=== PATIENT | male | born 1935 | race Two or more races ===

== ENCOUNTER 2018-07-13 09:03 | Inpatient (IN) | payer MEDICARE, OTHER ==
[~2018-07-13] VITALS: Ht 177.8 cm; Wt 57.6 kg
--- NOTE | 2018-07-13 09:07 | NUR ---
PT BIBRA FROM HOME TO ER BED 10. PER REPORT, PT IS C/O GENERALIZED WEAKNESS, PAIN WORST UPON MOVEMENT. DIARRHEA X 2 DAYS. HX OF CVA W/ L SIDED DEFICIT. GOWNED AND PLACED ON MONITOR. STABLE VITALS. AWAITING MD MORTENSEN.
--- NOTE | 2018-07-13 09:30 | NUR ---
DR WELLER AT BEDSIDE FOR EVAL.
[2018-07-13] MEDS ORDERED: ONDANSETRON HCL/PF 4 MG/2 ML VIAL ONE (09:40)
[2018-07-13] MEDS ORDERED: IV NS 0.9% 500 ML BAG IV ONE (10:00)
[2018-07-13] MEDS ORDERED: ONDANSETRON HCL/PF 4 MG/2 ML VIAL IVP ONE (10:00)
[2018-07-13 10:07] LABS: BASOPHILS % (AUTO) 0.1 % (0.0-2.0); EOSINOPHILS % (AUTO) 0.3 % (0.0-6.0); HEMATOCRIT 33 % (39-51); HEMOGLOBIN 10.4 g/dL (13.5-17.5); LYMPHOCYTES # (AUTO) 0.7 /CMM (0.8-4.8); LYMPHOCYTES % (AUTO) 5.2 % (20.0-44.0); MEAN CORPUSCULAR HEMOGLOBIN 31 PG (26.0-33.0); MEAN CORPUSCULAR HGB CONC 32 g/dl (31.0-36.0); MEAN CORPUSCULAR VOLUME 99 fL (80-96); MONOCYTES # (AUTO) 0.9 /CMM (0.1-1.30); MONOCYTES % (AUTO) 6.6 % (2.0-12.0); NEUTROPHILS # (AUTO) 12.1 /CMM (1.8-8.9); NEUTROPHILS % (AUTO) 87.8 % (43.0-81.0); PLATELET COUNT (AUTO) 233 /CMM (150-450); RDW COEFFICIENT OF VARIATION 14.8 (11.5-15.0); RED BLOOD CELL COUNT(AUTO) 3.35 MIL/uL (4.5-6.0); WHITE BLOOD COUNT (AUTO) 13.8 K/uL (4.3-11.0)
[2018-07-13 10:15] LABS: CALCIUM, SERUM 8.5 mg/dL (8.5-10.1); CARBON DIOXIDE 27 mmol/L (21-32); CHLORIDE 108 mmol/L (98-107); CREATININE 1.7 mg/dL (0.6-1.3); GLUCOSE 90 mg/dL (74-106); POTASSIUM 3.2 mmol/L (3.5-5.1); SODIUM SERUM 141 mmol/L (136-145); UREA NITROGEN, BLOOD 29 mg/dL (7-18)
--- NOTE | 2018-07-13 10:21 | NUR ---
WARM BLANKET REQUESTED, RESTING COMFORTABLY IN BED
[2018-07-13 11:20] LABS: APPEARANCE,URINE Cloudy (CLEAR); BILIRUBIN,URINE Negative (NEGATIVE); BLOOD, URINE Moderate Ery/uL (NEGATIVE); COLOR,URINE Yellow (YELLOW); KETONES,URINE Trace (NEGATIVE); LEUKOCYTE ESTERASE ,URINE Moderate (NEGATIVE); NITRITE, URINE Negative (NEGATIVE); PROTEIN,URINE >=300 mg/dl (NEGATIVE); UGLUCOSE Negative (NEGATIVE); UROBILINOGEN,URINE 0.2 EU/dL (0.2)
[2018-07-13 11:23] LABS: BACTERIA,URINE Many /HPF (None Seen); SQUAMOUS EPITHELIAL CELL,UR Few /HPF (None Seen); WBC,URINE 21-50 /HPF (0-3)
--- NOTE | 2018-07-13 12:21 | NUR ---
CALLED [facility] FOR PANEL CALL AND CAROLYN GOODE WAS PAGED
--- NOTE | 2018-07-13 12:24 | NUR ---
CALLED NURSING ELECTRONICS SYSTEM MECHANIC AND REQUESTED A MED SURG BED FOR THIS PT.
[2018-07-13] MEDS ORDERED: PIPERACILLIN /TAZOBACTAM 3.375 G in IV D5W 50 ML IV ONE (12:30)
[2018-07-13] MEDS ORDERED: ONDA4TAB10 PO (12:38)
[2018-07-13] MEDS ORDERED: ASPI-1169 PO (12:38)
[2018-07-13] MEDS ORDERED: PANT40TA4 PO (12:38)
[2018-07-13] MEDS ORDERED: ACET325T53 PO (12:38)
[2018-07-13] MEDS ORDERED: ATOR10TA PO (12:38)
[2018-07-13] MEDS ORDERED: AMLO2.5T2 PO (12:38)
[2018-07-13] MEDS ORDERED: CALC0.5C11 PO (12:38)
[2018-07-13] MEDS ORDERED: ABIR250T PO (12:38)
[2018-07-13] MEDS ORDERED: PRED1TAB PO (12:38)
[2018-07-13] MEDS ORDERED: AMIO200T4 PO (12:38)
--- NOTE | 2018-07-13 12:55 | NUR ---
Chelsy olivares in [facility] - 07/13/18 at 1311 by MONA PT IS ASSIGNED TO [facility]#: [id number], DX: WEAKNESS AND UTI, AND ACCEPTING: CAROLYN GOODE
--- NOTE | 2018-07-13 13:11 | NUR ---
PT IS ASSIGNED TO MED SURG RM#: [id number], DX: WEAKNESS AND UTI, AND ACCEPTING: CAROLYN GOODE
--- NOTE | 2018-07-13 13:17 | NUR ---
REPORT GIVEN TO JOSÉ MIGUEL. PT AWAITING TRANSFER TO FLOOR.
--- NOTE | 2018-07-13 13:29 | NUR ---
REPORT GIVEN TO ASHU KIRK. PT AWAITING TRANSFER TO FLOOR.
[2018-07-13 13:40] VITALS: BP 134/71
[2018-07-13 13:50] VITALS: BP 139/71
--- NOTE | 2018-07-13 13:55 | NUR ---
MS CIVIL DESIGN SPECIALIST 82 YEARS OLD MALE, A/O X3. SKIN BODY ASSESSMENT DONE WITH BRANCH ACCOUNT MANAGER. BILATERAL NEPHROSTOMY INTACT WITH DRAINAGE CLEAR YELLOW URINE. LUE, LLE WEAKNESS FROM HX. CVA. NO STOOL UPON ADMISSION, DENIES ABDOMINAL PAIN. ORIENTED TO ROOM, UNIT, STAFF AND PLACE CALL LIGHT WITHIN REACH. WILL CONT TO MONITOR.
[2018-07-13] MEDS ORDERED: MAG HYDROX/AL HYDROX/SIMETH 30 ML UDC PO PRN (14:00)
[2018-07-13] MEDS ORDERED: ACETAMINOPHEN 325 MG TABLET PO PRN (14:00)
[2018-07-13] MEDS ORDERED: ONDANSETRON HCL/PF 4 MG/2 ML VIAL IVP PRN (14:00)
[2018-07-13] MEDS ORDERED: MORPHINE SULFATE INJ 4 MG/ML DISP.SYRIN IV PRN (14:00)
[2018-07-13] MEDS: IV NS 0.9% 1,000 ML IV PRN (14:15)
[2018-07-13] MEDS ORDERED: POTASSIUM CL. PREMIX PERIPHER. 50 ML IV SCH (15:00)
[2018-07-13 16:21] VITALS: BP 132/67
[2018-07-13] MEDS ORDERED: Z GUARD REMEDY 2 OZ OINT TP PRN (17:30)
[2018-07-13] MEDS: PIPERACILLIN /TAZOBACTAM 2.25 G in IV D5W 50 ML IV SCH ×2 (18:02→23:26)
--- NOTE | 2018-07-13 18:34 | NUR ---
MS RN CLOSING NOTES VS remains stable, patient is seen by Dr. Chan/GI for consult, place patient on Clear liquids as ordered. Continued on IV antibiotic, for ID consult. Afebrile, denies abdominal pain. Low Potassium 3.2, supplemented as ordered. Had bowel movement today, soft pasty brown moderate amount, stool not collected, no episode of diarrhea. Will endorse to oncoming RN.
--- NOTE | 2018-07-13 19:30 | NUR ---
RN NOTES RECEIVED PATIENT IN BED AWAKE, AO X 3, ABLE TO MAKE NEEDS KNOWN. NO ACUTE DISTRESS NOTED. DENIES ANY PAIN AT THIS TIME. IV SITE PATENT, INTACT; IVF INFUSING ORDERED. SAFETY REMINDERS GIVEN. ON LOW BED WITH BILATERAL UPPER SIDE RAILS UP. CALL FITZGERALD WITHIN EASY REACH. WILL CONTINUE TO MONITOR.
[2018-07-13 20:00] VITALS: BP 139/73
[2018-07-13] MEDS ORDERED: VANCOMYCIN 1 GM VIAL ONE (21:28)
[2018-07-13] MEDS ORDERED: VANCOMYCIN 1 GM in IV D5W 250ml IV ONE (22:00)
[2018-07-14] MEDS: PIPERACILLIN /TAZOBACTAM 2.25 G in IV D5W 50 ML IV SCH ×4 (05:38→23:45)
--- NOTE | 2018-07-14 06:10 | NUR ---
RN NOTES PATIENT ASLEEP, EASILY AROUSABLE. RESPIRATIONS EVEN. NO SIGNS OF PAIN NOTED. DUE MEDS GIVEN WITH NO ASE NOTED. NEEDS ATTENDED. BILATERAL NEPHROSTOMY TUBES INTACT; DRAINED CLEAR FLUIDS. SAFETY PRECAUTIONS AND COMFORT MEASURES IN PLACE. WILL GIVE REPORT TO DAY SHIFT FOR CONTINUITY OF CARE.
[2018-07-14 06:27] LABS: BASOPHILS % (AUTO) 0.3 % (0.0-2.0); EOSINOPHILS % (AUTO) 3.6 % (0.0-6.0); HEMATOCRIT 29 % (39-51); HEMOGLOBIN 9.5 g/dL (13.5-17.5); LYMPHOCYTES # (AUTO) 0.9 /CMM (0.8-4.8); LYMPHOCYTES % (AUTO) 8.9 % (20.0-44.0); MEAN CORPUSCULAR HEMOGLOBIN 32 PG (26.0-33.0); MEAN CORPUSCULAR HGB CONC 33 g/dl (31.0-36.0); MEAN CORPUSCULAR VOLUME 99 fL (80-96); MONOCYTES % (AUTO) 9.7 % (2.0-12.0); NEUTROPHILS # (AUTO) 7.9 /CMM (1.8-8.9); NEUTROPHILS % (AUTO) 77.5 % (43.0-81.0); PLATELET COUNT (AUTO) 197 /CMM (150-450); RDW COEFFICIENT OF VARIATION 14.3 (11.5-15.0); RED BLOOD CELL COUNT(AUTO) 2.93 MIL/uL (4.5-6.0); WHITE BLOOD COUNT (AUTO) 10.3 K/uL (4.3-11.0)
[2018-07-14] MEDS: IV NS 0.9% 1,000 ML IV PRN (06:27)
[2018-07-14 06:39] LABS: CHOLESTEROL 137 mg/dL (<200); HDL CHOLESTEROL 33 mg/dL (40-60); LDL 76 mg/dL (0-99); TRIGLYCERIDES 123 mg/dL (30-150)
[2018-07-14] MEDS ORDERED: FEE PK DOSING 1 MIN EA MC ONE (06:42)
[2018-07-14 07:00] LABS: FREE PSA 3.54 ng/mL (0.00-45); PROSTATE SPECIFIC ANTIGEN SCR 20.33 ng/mL (0.00-4.00); THYROID STIMULATING HORMONE 2.862 uIU/mL (0.358-3.74)
[2018-07-14 07:03] LABS: CALCIUM, SERUM 8.1 mg/dL (8.5-10.1); CARBON DIOXIDE 24 mmol/L (21-32); CHLORIDE 108 mmol/L (98-107); CREATININE 1.7 mg/dL (0.6-1.3); GLUCOSE 85 mg/dL (74-106); MAGNESIUM 1.7 mg/dL (1.8-2.4); PHOSPHORUS 3.4 mg/dL (2.5-4.9); POTASSIUM 2.9 mmol/L (3.5-5.1); SODIUM SERUM 142 mmol/L (136-145); UREA NITROGEN, BLOOD 28 mg/dL (7-18)
[2018-07-14 07:27] LABS: ALBUMIN 2.2 g/dL (3.4-5.0); BILIRUBIN,DIRECT 0.1 mg/dL (0.0-0.2); BILIRUBIN,TOTAL 0.3 mg/dL (0.2-1.0); TOTAL PROTEIN, SERUM 5.5 g/dL (6.4-8.2)
[2018-07-14] MEDS: PANTOPRAZOLE 40 MG VIAL IV SCH (08:15)
--- NOTE | 2018-07-14 08:20 | NUR ---
MS RN NOTES Patient is A/O x3, on clear liquids, tolerating well. No complaints of N/V, denies abdominal pain. Nephrostomy intact, urine pale yellow and cloudy. Maintained safety, call light within reach. Will cont to monitor.
[2018-07-14 08:25] VITALS: BP 162/76
[2018-07-14 09:54] VITALS: BP 154/66
[2018-07-14] MEDS ORDERED: Magnesium 1GM/D5W 100ML PREMIX 100 ML IV SCH (11:29)
[2018-07-14] MEDS ORDERED: POTASSIUM CHLORIDE 20 MEQ POWDER PACKET PO ONE (12:00)
[2018-07-14] MEDS: POTASSIUM CHLORIDE 20 MEQ POWDER PACKET PO SCH ×2 (12:14→14:54)
[2018-07-14] MEDS: NITROGLYCERIN PACKET 1 GM PACKET TOP SCH ×3 (12:26→23:47)
[2018-07-14 16:00] VITALS: BP 145/82
--- NOTE | 2018-07-14 17:42 | NUR ---
Spoke with Eliana admin @ [facility]. Patient resides at [facility] @ [address] [facility] [phone]. Per Eliana, patient requires 2people assist with transfers and ambulation. He is max assist with adl's. He is currently on service with [facility] [phone]. Eliana will make determination if able to accept patient back due to isolation status stool C-diff. Addendum: 07/14/18 at 1742 by SUZETTE BALDWIN RN Amended: Links added.
[2018-07-14] MEDS: VANCOMYCIN HCL 125 MG/2.5 ML ORAL.SUSP PO SCH ×2 (18:31→23:45)
--- NOTE | 2018-07-14 18:45 | NUR ---
MS RN CLOSING NOTES Started on vancomycin PO today for C-diff stool. Afebrile during the shift, denies abdominal pain. NO episode of N/V, advanced diet to Cardiac, soft per Dr. Chan/GI. Continued IV Antibiotic per ID, maintained contact isolation C-diff stool, PPE utilized. Called [facility], unable to bring patients prostate medication-Zytiga. Called patient's sister Verónica, left message to her voicemail. Will endorse to oncoming RN.
--- NOTE | 2018-07-14 19:15 | NUR ---
MS RN NOTES RECEIVED PT IN BED, AWAKE, A/O X 3. VERBALLY RESPONSIVE. NO DISTRESS, NO SOB NOTED. IV SITE ON LFA INTACT AND PATENT, NO S/S OF INFILTRATION NOTED. IVF INFUSING WELL. LEFT AND RIGHT NEPHROSTOMY TUBE IN PLACE. DRAINING WITH YELLOW URINE NO HEMATURIA NOTED. ON C/I FOR C.DIFF. CONTACT ISOLATION PRECAUTION/ PPE OBSERVED. GOOD SKIN CARE RENDERED. ALL NEEDS ATTENDED AND ET. KEPT COMFORTABLE. SAFETY PRECAUTIONS OBSERVED. CALL LIGHT WITHIN REACH. WILL CONT TO MONITOR. .
[2018-07-14 20:00] VITALS: BP 132/65
[2018-07-14 20:09] LABS: APPEARANCE,URINE SL CLOUDY (CLEAR); BILIRUBIN,URINE NEGATIVE (NEGATIVE); BLOOD, URINE 2+ Ery/uL (NEGATIVE); COLOR,URINE YELLOW (YELLOW); KETONES,URINE NEGATIVE (NEGATIVE); LEUKOCYTE ESTERASE ,URINE 2+ (NEGATIVE); NITRITE, URINE POSITIVE (NEGATIVE); PROTEIN,URINE 2+ mg/dl (NEGATIVE); UGLUCOSE NEGATIVE (NEGATIVE); UROBILINOGEN,URINE 0.2 EU/dL (0.2)
[2018-07-14 20:15] LABS: BACTERIA,URINE Many /HPF (None Seen); SQUAMOUS EPITHELIAL CELL,UR Rare /HPF (None Seen); URINE AMORPHOUS URATE Moderate /HPF (None Seen); WBC,URINE 81-100 /HPF (0-3)
--- NOTE | 2018-07-14 20:21 | NUR ---
FRANCISCA, FROM [facility] BROUGHT PT'S ZYTIGA MEDICATION.
--- NOTE | 2018-07-14 20:25 | NUR ---
VENECIA MEDICATION GIVEN TO PHARMACY, RECEIVED BY SILKE
[2018-07-14 20:34] LABS: EOSINOPHIL,URINE None Seen
--- NOTE | 2018-07-14 20:45 | NUR ---
PT ON VANCO IV AND PO, NOTIFIED JOAN, PHARMACIST , PER KYAW IT'S OK.
[2018-07-14] MEDS ORDERED: VANCOMYCIN 0.75 GM in IV D5W 250 ML IV SCH (21:00)
[2018-07-14] MEDS ORDERED: ACETAMINOPHEN 325 MG TABLET PO PRN (21:00)
[2018-07-14 21:26] LABS: CREATININE, URINE 66.5 MG/DL (30.0-125.0); URINE TOTAL PROTEIN 181.9 mg/dL (0-11.9)
[2018-07-15] MEDS: IV NS 0.9% 1,000 ML IV PRN (02:35)
[2018-07-15] MEDS: VANCOMYCIN HCL 125 MG/2.5 ML ORAL.SUSP PO SCH ×4 (06:09→23:43)
[2018-07-15] MEDS: PIPERACILLIN /TAZOBACTAM 2.25 G in IV D5W 50 ML IV SCH ×3 (06:09→17:06)
[2018-07-15] MEDS: NITROGLYCERIN PACKET 1 GM PACKET TOP SCH ×4 (06:10→23:45)
--- NOTE | 2018-07-15 06:40 | NUR ---
MS RN NOTES PT IN BED, RESTING COMFORTABLY AT THIS TIME, AROUSES EASILY, A/O X 3. VERBALLY RESPONSIVE. NO DISTRESS, NO SOB NOTED. IV SITE ON LFA INTACT AND PATENT, NO S/S OF INFILTRATION NOTED. IVF INFUSING WELL. LEFT AND RIGHT NEPHROSTOMY TUBE IN PLACE. DRAINING WITH YELLOW URINE NO HEMATURIA NOTED. GOOD SKIN CARE RENDERED. ALL NEEDS ATTENDED AND MET. KEPT COMFORTABLE. SAFETY PRECAUTIONS OBSERVED. CALL LIGHT WITHIN REACH. ALL NEEDS ATTENDED AND MET. WILL ENDORSE TO NEXT SHIFT FOR DRU.
[2018-07-15 06:42] LABS: BASOPHILS % (AUTO) 0.4 % (0.0-2.0); EOSINOPHILS % (AUTO) 8.1 % (0.0-6.0); HEMATOCRIT 29 % (39-51); HEMOGLOBIN 9.5 g/dL (13.5-17.5); LYMPHOCYTES % (AUTO) 12.2 % (20.0-44.0); MEAN CORPUSCULAR HEMOGLOBIN 32 PG (26.0-33.0); MEAN CORPUSCULAR HGB CONC 33 g/dl (31.0-36.0); MEAN CORPUSCULAR VOLUME 99 fL (80-96); MONOCYTES # (AUTO) 0.7 /CMM (0.1-1.30); MONOCYTES % (AUTO) 8.9 % (2.0-12.0); NEUTROPHILS # (AUTO) 5.8 /CMM (1.8-8.9); NEUTROPHILS % (AUTO) 70.4 % (43.0-81.0); PLATELET COUNT (AUTO) 212 /CMM (150-450); RDW COEFFICIENT OF VARIATION 14.3 (11.5-15.0); RED BLOOD CELL COUNT(AUTO) 2.96 MIL/uL (4.5-6.0); WHITE BLOOD COUNT (AUTO) 8.2 K/uL (4.3-11.0)
[2018-07-15 06:57] LABS: CREATINE KINASE, TOTAL 13 U/L (39-308)
[2018-07-15 07:19] LABS: ALANINE AMINOTRANSFERASE 11 U/L (12-78); ALBUMIN 2.1 g/dL (3.4-5.0); ALKALINE PHOSPHATASE 75 U/L (46-116); ASPARTATE AMINOTRANSFERASE 19 U/L (15-37); BILIRUBIN,TOTAL 0.3 mg/dL (0.2-1.0); CALCIUM, SERUM 8.1 mg/dL (8.5-10.1); CARBON DIOXIDE 24 mmol/L (21-32); CHLORIDE 108 mmol/L (98-107); CREATININE 1.6 mg/dL (0.6-1.3); GLUCOSE 82 mg/dL (74-106); PHOSPHORUS 2.7 mg/dL (2.5-4.9); POTASSIUM 3.2 mmol/L (3.5-5.1); SODIUM SERUM 142 mmol/L (136-145); TOTAL PROTEIN, SERUM 5.4 g/dL (6.4-8.2); UREA NITROGEN, BLOOD 23 mg/dL (7-18)
--- NOTE | 2018-07-15 07:30 | NUR ---
MS RN NOTES PATIENT RECEIVED RESTING INSIDE ROOM. AWAKE, ALERT AND ORIENTED X 3. VERBALLY RESPONSIVE AND RESPONDS TO VERBAL AND TACTILE STIMULI. BREATHING EVEN AND UNLABORED. NO SOB OR ACUTE DISTRESS. DENIES ANY PAIN OR DISCOMFORT AT THIS TIME. PATIENT CALM AND RELAXED. NO CHANGES IN LOC NOTED. IV INTACT AND PATENT. NO SWELLING OR BLEEDING NOTED ON SITE. WILL CONTINUE TO MONITOR. BED LOCKED AND IN LOW POSITION. BILATERAL UPPER SIDE RAILS UP AND LOCKED. CALL LIGHT WITHIN EASY REACH
[2018-07-15] MEDS: PANTOPRAZOLE 40 MG TABLET.DR PO SCH (07:52)
[2018-07-15 08:00] VITALS: BP 167/82
[2018-07-15] MEDS: PANTOPRAZOLE 40 MG VIAL IV SCH (08:19)
--- NOTE | 2018-07-15 08:19 | NUR ---
MS RN NOTES PATIENT HAS CURRENT ORDER FOR PANTOPRAZOLE 40MG IVP. PATIENT ALREADY RECEIVED 40MG TAB PO PRIOR TO BREAKFAST. PANTOPRAZOLE 40MG IVP HELD. MD MADE AWARE. WILL CONTINUE TO MONITOR
[2018-07-15] MEDS: ASPIRIN 81 MG TAB.CHEW PO SCH (08:50)
[2018-07-15] MEDS: predniSONE 1 MG TABLET PO SCH (08:50)
[2018-07-15] MEDS: CALCITRIOL 0.25 MCG CAPSULE PO SCH (08:50)
[2018-07-15] MEDS: ATORVASTATIN 10 MG TABLET PO SCH (08:50)
[2018-07-15] MEDS: AMLODIPINE BESYLATE 2.5 MG TABLET PO SCH (08:50)
[2018-07-15] MEDS: AMIODARONE HCL 200 MG TABLET PO SCH ×2 (08:51→17:00)
--- NOTE | 2018-07-15 09:51 | NUR ---
WOUND CARE CONSULT: PT PRESENTS WITH BILATERAL NEPHROSTOMY TUBES AND SKIN STAINING/PIGMENTATION IRREGULARITIES TO SACRAL/BUTTOCKS AREA, PRESENT ON ADMISSION. PT HAVING FREQUENT LOOSE STOOLS. RECOMMENDATIONS MADE FOR SKIN PROTECTION. DISCUSSED WITH NURSING STAFF. CURRENT FABRICE SCORE IS 16. WILL SEE PRN. MIXON IN AGREEMENT WITH PLAN OF CARE. Addendum: 07/15/18 at 0953 by EZIO HOFFMANN WNDNU Amended: Links added.
[2018-07-15] MEDS ORDERED: POTASSIUM CHLORIDE 20 MEQ POWDER PACKET PO SCH (11:30)
--- NOTE | 2018-07-15 15:00 | NUR ---
MS RN NOTES PLACED CALL TO [facility] TO INFORM REGARDING ENSURE ORDER FOR 1700. PER [facility], ENSURE WILL BE DELIVERED AT DINNER TIME. WILL CONTINUE TO MONITOR
[2018-07-15 16:00] VITALS: BP 148/83
[2018-07-15] MEDS: ENSURE CLEAR 237 ML LIQUID (MIX BERRY) PO SCH (17:00)
--- NOTE | 2018-07-15 17:30 | NUR ---
MS RN NOTES PLACED CALL TO [facility] TO FOLLOW-UP REGARDING ENSURE CLEAR, NOT CURRENTLY AVAILABLE AT UNIT. PER [facility], THEY WILL DELIVER ENSURE TO UNIT. WILL CONTINUE TO MONITOR
[2018-07-15] MEDS: CEFTRIAXONE 1 G in IV D5W 50 ML IV SCH (18:22)
--- NOTE | 2018-07-15 18:55 | NUR ---
MS RN NOTES PATIENT RESTING INSIDE ROOM. AWAKE, ALERT AND ORIENTED, VERBALLY RESPONSIVE AND RESPONDS TO VERBAL AND TACTILE STIMULI. BREATHING EVEN AND UNLABORED. NO SOB OR ACUTE DISTRESS NOTED AT THIS TIME. DENIES ANY PAIN OR DISCOMFORT. IV INTACT AND PATENT, NO SWELLING OR BLEEDING ON SITE. BILATERAL NEPHROSTOMY IN PLACE WITH YELLOW URINE OUTPUT NOTED. WILL ENDORSE TO INCOMING SHIFT FOR DRU. BED LOCKED AND IN LOW POSITION. BILATERAL UPPER SIDE RAILS UP AND LOCKED. CALL LIGHT WITHIN EASY REACH
--- NOTE | 2018-07-15 19:18 | NUR ---
MS RN NOTES RECEIVED PT IN BED, AWAKE, A/O X 3, WATCHING TV AT THIS TIME, VERBALLY RESPONSIVE. NO DISTRESS, NO SOB NOTED. IV SITE ON LFA INTACT AND PATENT, NO S/S OF INFILTRATION NOTED. IVF INFUSING WELL. LEFT AND RIGHT NEPHROSTOMY TUBE IN PLACE. DRAINING WITH YELLOW URINE NO HEMATURIA NOTED. ON C/I FOR C.DIFF. CONTACT ISOLATION PRECAUTION/ PPE OBSERVED. GOOD SKIN CARE RENDERED. ALL NEEDS ATTENDED AND MET. DENIES ANY PAIN OR DISCOMFORT AT THIS TIME. KEPT COMFORTABLE. SAFETY PRECAUTIONS OBSERVED. CALL LIGHT WITHIN REACH. WILL CONT TO MONITOR.
[2018-07-15 20:00] VITALS: BP 142/70
--- NOTE | 2018-07-16 05:23 | NUR ---
PT REFUSED BLOOD DRAW PER LIFE SKILLS SPECIALIST , PT IS A/O X 3, RISK AND BENEFITS EXPLAINED , PT STILL REFUSED X 3.
[2018-07-16] MEDS: VANCOMYCIN HCL 125 MG/2.5 ML ORAL.SUSP PO SCH ×4 (05:46→23:25)
[2018-07-16] MEDS: NITROGLYCERIN PACKET 1 GM PACKET TOP SCH ×4 (05:51→23:30)
--- NOTE | 2018-07-16 06:25 | NUR ---
MS RN CLOSING NOTES PT IN BED, RESTING COMFORTABLY AT THIS TIME, AROUSES EASILY, A/O X 3, VERBALLY RESPONSIVE. NO DISTRESS, NO SOB NOTED. IV SITE ON LFA INTACT AND PATENT, NO S/S OF INFILTRATION NOTED. IVF INFUSING WELL. LEFT AND RIGHT NEPHROSTOMY TUBE IN PLACE. DRAINING WITH YELLOW URINE NO HEMATURIA NOTED. ON C/I FOR C.DIFF. CONTACT ISOLATION PRECAUTION/ PPE OBSERVED. GOOD SKIN CARE RENDERED. ALL NEEDS ATTENDED AND MET. DENIES ANY PAIN OR DISCOMFORT AT THIS TIME. NO BM NOR DIARRHEA NOTED IN MY SHIFT. KEPT COMFORTABLE. SAFETY PRECAUTIONS OBSERVED. CALL LIGHT WITHIN REACH. WILL ENDORSE TO NEXT SHIFT FOR DRU.
[2018-07-16] MEDS: IV NS 0.9% 1,000 ML IV PRN ×2 (07:02→09:54)
--- NOTE | 2018-07-16 07:30 | NUR ---
MS RN OPENING NOTES RECEIVED PT SITTING UPRIGHT IN BED, RESTING COMFORTABLY. PT IS A/O X3, AFEBRILE. RESPIRATIONS ARE EVEN AND UNLABORED, NOT IN ANY ACUTE DISTRESS NOTED. PT DENIES ANY PAIN, SOB, N/V. IV SITE IS INTACT, NO INFILTRATION NOTED. DRESSING KEPT CLEAN AND DRY. CONTACT PRECAUTIONS TAKEN PER PROTOCOL. SAFETY MEASURES ARE IN PLACE. INSTRUCTED PT TO USE CALL LIGHT WHEN ASSISTANCE IS NEEDED, CALL LIGHT IS LEFT WITHIN REACH. WILL CONTINUE TO MONITOR THROUGHOUT SHIFT FOR CONTINUITY OF CARE.
[2018-07-16] MEDS: PANTOPRAZOLE 40 MG TABLET.DR PO SCH (07:53)
[2018-07-16 08:00] VITALS: BP 179/97
[2018-07-16] MEDS: ASPIRIN 81 MG TAB.CHEW PO SCH (08:33)
[2018-07-16] MEDS: ATORVASTATIN 10 MG TABLET PO SCH (08:33)
[2018-07-16] MEDS: ENSURE CLEAR 237 ML LIQUID (MIX BERRY) PO SCH ×2 (08:33→17:07)
[2018-07-16] MEDS: CALCITRIOL 0.25 MCG CAPSULE PO SCH (08:33)
[2018-07-16] MEDS: AMLODIPINE BESYLATE 2.5 MG TABLET PO SCH (08:34)
[2018-07-16] MEDS: predniSONE 1 MG TABLET PO SCH (08:34)
[2018-07-16] MEDS: AMIODARONE HCL 200 MG TABLET PO SCH ×2 (08:34→17:08)
--- NOTE | 2018-07-16 10:48 | NUR ---
MS RN NOTES PT REFUSED BLOOD DRAW. EXPLAINED TO THE PT THE IMPORTANCE AND THE NEED FOR BLOOD DRAW X3, PT STRONGLY REFUSES. INFORMED PT THAT POTASSIUM IS LOW, PT STILL STATED "NO, I DONT WANT THEM DRAWING MY BLOOD. NOTIFIED DR. HIGGINS.
--- NOTE | 2018-07-16 11:22 | NUR ---
MS RN NOTES PT SEEN AND EXAMINED BY DR. HIGGINS W/ ORDERS FOR PT EVAL.
[2018-07-16 13:29] LABS: PTH, INTACT 28 pg/mL (15-65)
[2018-07-16] MEDS: METRONIDAZOLE 500MG/ NS 100ML 500 MG in PREMIX 1 EA IV SCH ×2 (14:49→21:42)
[2018-07-16 16:00] VITALS: BP 150/69
[2018-07-16] MEDS: CEFTRIAXONE 1 G in IV D5W 50 ML IV SCH (17:08)
--- NOTE | 2018-07-16 18:28 | NUR ---
MS RN CLOSING NOTES ALL DUE MEDS GIVEN, NEEDS MET AND RENDERED. PT IS ALERT AND RESPONSIVE, RESPIRATIONS ARE EVEN AND UNLABORED, NOT IN ANY ACUTE DISTRESS NOTED. PT DENIES ANY PAIN, NO SOB, N/V NOTED. IV SITE IS INTACT, NO INFILTRATION NOTED. DRESSING KEPT CLEAN AND DRY. SAFETY MEASURES ARE IN PLACE. REMINDED PT TO USE CALL LIGHT WHEN ASSISTANCE IS NEEDED, CALL LIGHT IS LEFT WITHIN REACH. CONTACT PRECAUTIONS TAKEN PER PROTOCOL. WILL ENDORSE TO NEXT SHIFT FOR CONTINUITY OF CARE.
--- NOTE | 2018-07-16 19:25 | NUR ---
RN MS OPENING NOTES RECEIVED PATIENT IN BED AWAKE ALERT AND ORIENTED X3, ABLE TO MAKE NEEDS KNOWN, RESPIRATIONS EVEN AND UNLABORED WITH EQUAL RISE AND FALL OF CHEST, DENIES ANY PAIN OR DISCOMFORT AT THIS TIME, NEPHROSTOMY TUBES IN PLACE AND INTACT AND DRAINING. IV SITE TO LEFT FA #20G INTACT AND PATENT NO REDNESS, NO INFILTRATION PRESENT, IVF RUNNING ORDERED. ORIENTED TO STAFF, ROOM AND CALL LIGHT KEPT WITHIN REACH, SAFETY PRECAUTIONS IN PLACE, LOW BED AND LOCKED, FLUIDS OFFERED, ALL NEEDS ATTENDED AT THIS TIME, WILL CONTINUE TO MONITOR FOR CONTINUITY OF CARE.
[2018-07-16 20:00] VITALS: BP 190/86
--- NOTE | 2018-07-16 20:21 | NUR ---
RN MS NOTES CALLED AND SPOKE TO DR. JIMENEZ REGARDING ELEVATED BLOOD PRESSURE OF 190/86 HR OF 53, MADE AWARE OF CURRENT B/P MEDS AND SCHEDULE NITRO BID TOPICAL FOR MIDNIGHT AND PATIENT ASYMPTOMATIC, NOT COMPLAINING OF PAIN AT THIS TIME. NO NEW ORDER AT THIS TIME FOR BP , NEW ORDER FOR NORCO PRN, WILL CONTINUE TO MONITOR. PER PATIENT HAS PREVIOUS HX OF B/P REACHING TO 180 MOST 187. REASKED PATIENT IF IN PAIN REFUSED, MADE AWARE THAT NORCO IS AVAILABLE IF IN PAIN, PATIENT UNDERSTANDS WILL CONTINUE TO MONITOR. PATIENT REMAINS COMFORTABLE AT THIS TIME, CALL LIGHT KEPT WITHIN REACH.
[2018-07-16] MEDS ORDERED: HYDROCODONE/APAP 5/325MG 1 EACH TABLET PO PRN (20:30)
[2018-07-16 20:43] VITALS: BP 190/86
--- NOTE | 2018-07-16 20:47 | NUR ---
RN MS NOTES PATIENT WAS REFUSING LAB DRAW. MADE PATIENT AWARE OF REASON FOR BLOOD LAB DRAW VANCOMYCIN TROUGH AND IF HE WILL ALLOW STAFF TO DRAW BLOOD PATIENT AGREED STATED " SHE ONLY HAS ONE CHANCE. YOU GUYS COLLECT BLOOD EVERYDAY" PROPERTY ANALYST ATTEMPTED ONCE UNABLE TO COLLECT. PATIENT REFUSING AT THIS TIME.
[2018-07-17] MEDS ORDERED: NITROGLYCERIN PACKET 1 GM PACKET ONE (05:05)
[2018-07-17] MEDS: IV NS 0.9% 1,000 ML IV PRN (05:09)
[2018-07-17] MEDS: METRONIDAZOLE 500MG/ NS 100ML 500 MG in PREMIX 1 EA IV SCH ×3 (05:09→21:19)
[2018-07-17] MEDS: NITROGLYCERIN PACKET 1 GM PACKET TOP SCH ×4 (05:10→23:03)
[2018-07-17] MEDS: VANCOMYCIN HCL 125 MG/2.5 ML ORAL.SUSP PO SCH ×4 (05:19→23:02)
--- NOTE | 2018-07-17 07:17 | NUR ---
RN MS CLOSING NOTES PATIENT IN BED, SLEEPING BUT EASILY AROUSABLE, RESPIRATIONS EVEN AND UNLABORED WITH EQUAL RISE AND FALL OF CHEST.DENIES ANY PAIN OR DISCOMFORT AT THIS TIME, IV SITE TO LEFT FA #24 INTACT AND PATENT, NO REDNESS, NO INFILTRATION, IVF RUNNING ORDERED, SAFETY PRECAUTIONS IN PLACE, NOTED BLOOD PRESSURE DECREASED WITH NITRO BID PATCH.PATIENT ASYMPTOMATIC, NO CHANGES REPORTED THROUGHOUT SHIFT, ALL NEEDS ATTENDED , REMAINS COMFORTABLE AT THIS TIME. WILL CONTINUE TO MONITOR AND ENDORSE TO NEXT SHIFT.
--- NOTE | 2018-07-17 07:20 | NUR ---
MS RN OPENING NOTES RECEIVED PT SITTING UPRIGHT IN BED, RESTING COMFORTABLY. PT IS A/O X3, AFEBRILE. RESPIRATIONS ARE EVEN AND UNLABORED, NOT IN ANY ACUTE DISTRESS NOTED. PT DENIES ANY PAIN, SOB, N/V. IV SITE IS INTACT, NO INFILTRATION NOTED. DRESSING KEPT CLEAN AND DRY. SAFETY MEASURES ARE IN PLACE. INSTRUCTED PT TO USE CALL LIGHT WHEN ASSISTANCE IS NEEDED, CALL LIGHT IS LEFT WITHIN REACH. CONTACT PRECAUTIONS TAKEN PER PROTOCOL. WILL CONTINUE TO MONITOR THROUGHOUT SHIFT FOR CONTINUITY OF CARE.
[2018-07-17] MEDS: PANTOPRAZOLE 40 MG TABLET.DR PO SCH (07:36)
[2018-07-17 07:51] LABS: CALCIUM, SERUM 8.3 mg/dL (8.5-10.1); CARBON DIOXIDE 25 mmol/L (21-32); CHLORIDE 108 mmol/L (98-107); CREATININE 1.4 mg/dL (0.6-1.3); GLUCOSE 93 mg/dL (74-106); MAGNESIUM 1.6 mg/dL (1.8-2.4); PHOSPHORUS 2.7 mg/dL (2.5-4.9); SODIUM SERUM 143 mmol/L (136-145); UREA NITROGEN, BLOOD 13 mg/dL (7-18)
[2018-07-17 07:53] LABS: POTASSIUM 2.3 mmol/L (3.5-5.1)
[2018-07-17 08:00] VITALS: BP 185/82
[2018-07-17] MEDS: CALCITRIOL 0.25 MCG CAPSULE PO SCH (08:45)
[2018-07-17] MEDS: ATORVASTATIN 10 MG TABLET PO SCH (08:45)
[2018-07-17] MEDS: ASPIRIN 81 MG TAB.CHEW PO SCH (08:45)
[2018-07-17] MEDS: ENSURE CLEAR 237 ML LIQUID (MIX BERRY) PO SCH ×2 (08:46→17:20)
[2018-07-17] MEDS: AMIODARONE HCL 200 MG TABLET PO SCH ×2 (08:46→17:19)
[2018-07-17] MEDS: predniSONE 1 MG TABLET PO SCH (08:46)
[2018-07-17] MEDS: AMLODIPINE BESYLATE 2.5 MG TABLET PO SCH (08:46)
[2018-07-17] MEDS: POTASSIUM CL. PREMIX PERIPHER. 50 ML IV SCH ×4 (10:41→19:13)
[2018-07-17] MEDS: POTASSIUM CHLORIDE 20 MEQ TAB.PRT.SR PO SCH (11:10)
[2018-07-17] MEDS: Magnesium 1GM/D5W 100ML PREMIX 100 ML IV SCH ×2 (11:43→13:44)
[2018-07-17] MEDS ORDERED: AMLODIPINE BESYLATE 2.5 MG TABLET PO ONE (12:30)
--- NOTE | 2018-07-17 13:51 | NUR ---
MS RN NOTES PT SEEN AND EXAMINED BY MERCED JAUREGUI W/ ORDERS NOTED AND CARRIED OUT.
[2018-07-17 16:00] VITALS: BP 175/79
[2018-07-17 16:45] LABS: CALCIUM, SERUM 8.4 mg/dL (8.5-10.1); CARBON DIOXIDE 25 mmol/L (21-32); CHLORIDE 107 mmol/L (98-107); CREATININE 1.3 mg/dL (0.6-1.3); GLUCOSE 99 mg/dL (74-106); POTASSIUM 3.1 mmol/L (3.5-5.1); SODIUM SERUM 143 mmol/L (136-145); UREA NITROGEN, BLOOD 12 mg/dL (7-18)
[2018-07-17] MEDS ORDERED: POTASSIUM CHLORIDE 10 MEQ/50 ML PREMIXED IVPB FOR PERIPHERAL LINE IV ONE (17:00)
[2018-07-17] MEDS: CEFTRIAXONE 1 G in IV D5W 50 ML IV SCH (18:21)
--- NOTE | 2018-07-17 18:37 | NUR ---
MS RN CLOSING NOTES ALL DUE MEDS GIVEN, NEEDS MET AND RENDERED. PT IS ALERT AND RESPONSIVE, RESPIRATIONS ARE EVEN AND UNLABORED, NOT IN ANY ACUTE DISTRESS NOTED. PT DENIES ANY PAIN, NO SOB, N/V NOTED. IV SITE IS INTACT, NO INFILTRATION NOTED. DRESSING KEPT CLEAN AND DRY. NEPHROSTOMY TUBES IN PLACE, FREE OF KINKS. URINE OUTPUT OF 1750ML, CLEAR YELLOW W/ NO SEDIMENTS NOTED. SAFETY MEASURES ARE IN PLACE. REMINDED PT TO USE CALL LIGHT WHEN ASSISTANCE IS NEEDED, CALL LIGHT IS LEFT WITHIN REACH. CONTACT PRECAUTIONS TAKEN PER PROTOCOL. WILL ENDORSE TO NEXT SHIFT FOR CONTINUITY OF CARE.
--- NOTE | 2018-07-17 19:38 | NUR ---
MS RN OPENING NOTES: RECEIVED PT ON ROOM AIR AND IS TOLERATING WELL. PT AWAKE IN SEMI-LUNA'S POSITION AND IS WATCHING TELEVISION AND IS A/OX3. PT HAS IV ON L FOREARM 24G AND IS BEING INFUSED WITH POTASSIUM IV. PT HAS BILATERAL NEPHROSTOMY TUBE WITH CLEAR/YELLOW FLUID DRAINING. CALL LIGHT WITHIN PT'S REACH. BED KEPT IN LOW, LOCKED POSITION, AND SIDE RAILS X 2UP. WILL CONTINUE TO MONITOR PT.
[2018-07-17 19:48] VITALS: BP 162/71
--- NOTE | 2018-07-18 02:29 | NUR ---
MS RN NOTES: SPOKE WITH DR. JIMENEZ. AWAITING FOR ADMITTING ORDERS. DR. JIMENEZ AWARE THAT PT IS HERE AND THAT BP IS ELEVATED 159/93 HR 78. Addendum: 07/18/18 at 0232 by JORGE YOUNG RN WRONG PT . IGNORE THIS NOTE.
[2018-07-18] MEDS ORDERED: NITROGLYCERIN PACKET 1 GM PACKET ONE (04:02)
[2018-07-18] MEDS: IV NS 0.9% 1,000 ML IV PRN ×2 (04:24→21:14)
[2018-07-18] MEDS: METRONIDAZOLE 500MG/ NS 100ML 500 MG in PREMIX 1 EA IV SCH (05:06)
[2018-07-18 05:20] VITALS: BP 133/72
[2018-07-18] MEDS: VANCOMYCIN HCL 125 MG/2.5 ML ORAL.SUSP PO SCH ×4 (05:51→23:36)
[2018-07-18] MEDS: NITROGLYCERIN PACKET 1 GM PACKET TOP SCH (05:51)
--- NOTE | 2018-07-18 06:43 | NUR ---
MS RN CLOSING NOTES: ALL NEEDS WERE ATTENDED AND ANTICIPATED FOR. PT ASLEEP AT THIS TIME AND RESTING COMFORTABLY. PT HAS IV ON L FOREARM #24G AND IS BEING INFUSED WITH IV NS AT 75ML/HR. PT HAS BILATERAL NEPHROSTOMY TUBE. OUTPUT OF LEFT TUBE WAS 450ML AND OUTPUT WAS RIGHT TUBE WAS 150ML. CALL LIGHT WITHIN PT'S REACH. BED KEPT IN LOW, LOCKED POSITION, AND SIDE RAILS X 2UP. WILL ENDORSE TO AM NURSE FOR DRU.
[2018-07-18] MEDS: NITROGLYCERIN 30 GM TUBE TP SCH ×5 (07:22→23:35)
[2018-07-18 07:29] LABS: BASOPHILS % (AUTO) 0.2 % (0.0-2.0); EOSINOPHILS % (AUTO) 3.3 % (0.0-6.0); HEMATOCRIT 30 % (39-51); HEMOGLOBIN 9.7 g/dL (13.5-17.5); LYMPHOCYTES # (AUTO) 1.1 /CMM (0.8-4.8); LYMPHOCYTES % (AUTO) 9.5 % (20.0-44.0); MEAN CORPUSCULAR HEMOGLOBIN 31 PG (26.0-33.0); MEAN CORPUSCULAR HGB CONC 32 g/dl (31.0-36.0); MEAN CORPUSCULAR VOLUME 98 fL (80-96); MONOCYTES # (AUTO) 0.9 /CMM (0.1-1.30); MONOCYTES % (AUTO) 7.6 % (2.0-12.0); NEUTROPHILS # (AUTO) 9.4 /CMM (1.8-8.9); NEUTROPHILS % (AUTO) 79.4 % (43.0-81.0); PLATELET COUNT (AUTO) 250 /CMM (150-450); RDW COEFFICIENT OF VARIATION 14.3 (11.5-15.0); RED BLOOD CELL COUNT(AUTO) 3.09 MIL/uL (4.5-6.0); WHITE BLOOD COUNT (AUTO) 11.8 K/uL (4.3-11.0)
--- NOTE | 2018-07-18 08:00 | NUR ---
MS KIRK AM NOTES RECEIVED PT SITTING UPRIGHT IN BED, RESTING COMFORTABLY. PT IS A/O X3, AFEBRILE. RESPIRATIONS ARE EVEN AND UNLABORED, NOT IN ANY ACUTE DISTRESS NOTED. PT DENIES ANY PAIN, SOB, N/V. WITH IVF NS AT 75 ML/HR INFUSING WELL. SITE IS INTACT, NO INFILTRATION NOTED. DRESSING KEPT CLEAN AND DRY. SAFETY MEASURES ARE IN PLACE. INSTRUCTED PT TO USE CALL LIGHT WHEN ASSISTANCE IS NEEDED, CALL LIGHT IS LEFT WITHIN REACH. ON C.DIFF CONTACT PRECAUTIONS PER PROTOCOL. WILL CONTINUE TO MONITOR THROUGHOUT SHIFT FOR CONTINUITY OF CARE.
[2018-07-18] MEDS: ASPIRIN 81 MG TAB.CHEW PO SCH (08:04)
[2018-07-18] MEDS: predniSONE 1 MG TABLET PO SCH (08:04)
[2018-07-18] MEDS: CALCITRIOL 0.25 MCG CAPSULE PO SCH (08:04)
[2018-07-18] MEDS: ATORVASTATIN 10 MG TABLET PO SCH (08:04)
[2018-07-18] MEDS: PANTOPRAZOLE 40 MG TABLET.DR PO SCH (08:04)
[2018-07-18] MEDS: POTASSIUM CHLORIDE 20 MEQ TAB.PRT.SR PO SCH (08:04)
[2018-07-18] MEDS: AMIODARONE HCL 200 MG TABLET PO SCH ×2 (08:05→17:43)
[2018-07-18] MEDS: AMLODIPINE BESYLATE 5 MG TABLET PO SCH (08:10)
[2018-07-18] MEDS: ENSURE ENLIVE CHOC 237 ML CAN PO SCH ×3 (08:10→17:00)
[2018-07-18 08:18] LABS: ALANINE AMINOTRANSFERASE 8 U/L (12-78); ALBUMIN 2.6 g/dL (3.4-5.0); ALKALINE PHOSPHATASE 88 U/L (46-116); ASPARTATE AMINOTRANSFERASE 25 U/L (15-37); BILIRUBIN,TOTAL 0.1 mg/dL (0.2-1.0); CALCIUM, SERUM 8.2 mg/dL (8.5-10.1); CARBON DIOXIDE 24 mmol/L (21-32); CHLORIDE 108 mmol/L (98-107); CREATININE 1.1 mg/dL (0.6-1.3); GLUCOSE 99 mg/dL (74-106); MAGNESIUM 1.9 mg/dL (1.8-2.4); PHOSPHORUS 2.8 mg/dL (2.5-4.9); SODIUM SERUM 143 mmol/L (136-145); TOTAL PROTEIN, SERUM 5.3 g/dL (6.4-8.2); UREA NITROGEN, BLOOD 10 mg/dL (7-18)
--- NOTE | 2018-07-18 08:43 | NUR ---
HELD NTG TP BECAUSE THE NIGHT NURSE,REAGAN LYONS ALREADY ADMINISTERED THE NTG 1 INCH TP AT 0600.
[2018-07-18 08:51] VITALS: BP 163/80
[2018-07-18] MEDS ORDERED: POTASSIUM CHLORIDE 20 MEQ TAB.PRT.SR PO ONE (10:30)
[2018-07-18] MEDS ORDERED: NITROGLYCERIN 30 GM TUBE TP SCH (12:00)
[2018-07-18] MEDS: METRONIDAZOLE 500 MG TABLET PO SCH ×2 (12:32→20:13)
[2018-07-18 15:50] VITALS: BP 143/69
[2018-07-18] MEDS: CEFTRIAXONE 1 G in IV D5W 50 ML IV SCH (17:40)
--- NOTE | 2018-07-18 19:02 | NUR ---
PT RESTING COMFORTABLY IN BED DENYING ANY PAIN OR DISTRESS.PT'S SON-IN-LAW AT BEDSIDE.WITH ONGOING IVF OF NS AT 75 ML/HR INFUSING WELL.CALL LIGHT PLACED WITHIN REACH.
--- NOTE | 2018-07-18 19:15 | NUR ---
MS RN OPENING NOTES: RECEIVED PT AND IS ON ROOM AIR TOLERATING WELL. FAMILY MEMBER AT BEDSIDE. PT HAS IV ON L FOREARM #24G AND IS BEING INFUSED WITH IV NS AT 75ML/HR. PT HAS BILATERAL NEPHROSTOMY TUBES WITH CLEAR/YELLOW FLUID DRAINING. CALL LIGHT WITHIN PT'S REACH. BED KEPT IN LOW, LOCKED POSITION, AND SIDE RAILS X 2UP. WILL CONTINUE TO MONITOR PT.
[2018-07-18 20:00] VITALS: BP 134/70
[2018-07-18 23:30] VITALS: BP 146/78
[2018-07-19] MEDS: METRONIDAZOLE 500 MG TABLET PO SCH ×2 (05:11→13:45)
[2018-07-19] MEDS: VANCOMYCIN HCL 125 MG/2.5 ML ORAL.SUSP PO SCH ×3 (05:57→17:00)
[2018-07-19] MEDS: NITROGLYCERIN 30 GM TUBE TP SCH ×3 (05:57→17:04)
--- NOTE | 2018-07-19 06:26 | NUR ---
MS RN CLOSING NOTES: ALL NEEDS WERE ATTENDED AND ANTICIPATED FOR. PT KEPT CLEAN, DRY, AND COMFORTABLE. PT ON ROOM AIR AND TOLERATING WELL. PT IS A/OX3. PT HAS BILATERAL NEPHROSTOMY TUBES AND BOTH DRAINING YELLOW/FLUID. LEFT TUBE OUTPUT WAS 225ML AND RIGHT TUBE OUTPUT WAS 350ML. PT HAS IV ON L FOREARM #24G AND IS BEING INFUSED WITH IV NS AT 75ML/HR. CALL LIGHT WITHIN PT'S REACH. PT REQUESTED FOR 2 OTHER SIDERAILS TO BE PUT UP. CALL LIGHT WITHIN PT'S REACH. BED KEPT IN LOW, LOCKED POSITION. WILL ENDORSE TO AM NURSE FOR DRU.
[2018-07-19 07:22] LABS: CALCIUM, SERUM 8.5 mg/dL (8.5-10.1); CARBON DIOXIDE 24 mmol/L (21-32); CHLORIDE 107 mmol/L (98-107); CREATININE 1.3 mg/dL (0.6-1.3); GLUCOSE 95 mg/dL (74-106); POTASSIUM 3.6 mmol/L (3.5-5.1); SODIUM SERUM 142 mmol/L (136-145); UREA NITROGEN, BLOOD 10 mg/dL (7-18)
[2018-07-19] MEDS: ENSURE ENLIVE CHOC 237 ML CAN PO SCH ×3 (08:00→17:00)
--- NOTE | 2018-07-19 08:00 | NUR ---
MS KIRK AM NOTES RECEIVED PT SITTING UPRIGHT IN BED, RESTING COMFORTABLY. PT IS A/O X3, AFEBRILE. RESPIRATIONS ARE EVEN AND UNLABORED, NOT IN ANY ACUTE DISTRESS NOTED. PT DENIES ANY PAIN, SOB, N/V. WITH IVF NS AT 75 ML/HR INFUSING WELL. SITE IS INTACT, NO INFILTRATION NOTED. DRESSING KEPT CLEAN AND DRY. SAFETY MEASURES ARE IN PLACE. EATING BREAKFAST WITH POOR APPETITE.JUST ATE THE SCRAMBLED EGG.REFUSED ENSURE.ENCOURAGED INCREASE ORAL INTAKE.CALL LIGHT IS LEFT WITHIN REACH. ON C.DIFF CONTACT PRECAUTIONS PER PROTOCOL. WILL CONTINUE TO MONITOR.
[2018-07-19 08:12] VITALS: BP 169/82
[2018-07-19] MEDS: CALCITRIOL 0.25 MCG CAPSULE PO SCH (08:54)
[2018-07-19] MEDS: AMIODARONE HCL 200 MG TABLET PO SCH ×2 (08:54→17:00)
[2018-07-19] MEDS: ATORVASTATIN 10 MG TABLET PO SCH (08:54)
[2018-07-19] MEDS: AMLODIPINE BESYLATE 5 MG TABLET PO SCH (08:54)
[2018-07-19] MEDS: predniSONE 1 MG TABLET PO SCH (08:55)
[2018-07-19] MEDS: POTASSIUM CHLORIDE 20 MEQ TAB.PRT.SR PO SCH (08:55)
[2018-07-19] MEDS: PANTOPRAZOLE 40 MG TABLET.DR PO SCH (08:55)
[2018-07-19] MEDS: ASPIRIN 81 MG TAB.CHEW PO SCH (08:55)
[2018-07-19 10:12] LABS: *SPE ALBUMIN 2.4 g/dL (2.9-4.4); *SPE ALPHA-1-GLOBULIN 0.3 g/dL (0.0-0.4); *SPE ALPHA-2-GLOBULIN 0.7 g/dL (0.4-1.0); *SPE BETA GLOBULIN 0.8 g/dL (0.7-1.3); *SPE GLOBULIN, TOTAL 2.3 g/dL (2.2-3.9); *SPE M-SPIKE Not Observed g/dL (Not Observed); *SPEGAMMA GLOBULIN 0.5 g/dL (0.4-1.8)
[2018-07-19] MEDS ORDERED: CEFT1PIG2 IV (10:55)
[2018-07-19] MEDS ORDERED: VANC500V PO (10:55)
[2018-07-19] MEDS ORDERED: METR500P3 IV (10:55)
[2018-07-19] MEDS ORDERED: AMLODIPINE BESYLATE 5 MG TABLET PO SCH (17:00)
[2018-07-19] MEDS: CEFTRIAXONE 1 G in IV D5W 50 ML IV SCH (17:01)
[2018-07-19 17:04] VITALS: BP 156/78
--- NOTE | 2018-07-19 17:44 | NUR ---
PT REFUSED WOUND PHOTOS TO BE TAKEN AND WAS IN A [place]ICK[place] TO GO BACK TO BOARD AND CARE INSPITE OF EXPLAINING ITS IMPORTANCE.PT INSISTS TO REFUSE.
--- NOTE | 2018-07-19 18:00 | NUR ---
DISCHARGE INSTRUCTIONS,MED RECONCILIATION,MED AND HEALTH TEACHING GIVEN TO PT/PT'S BOARD AND CARE ROUSTABOUT CREW PUSHER,JAH.INSTRUCTED FOR OUTPT F/U WITH DR HEART ON JUL 26-WEDNESDAY AT 1000 AM FOR C.DIFF.IV H/L TO LFA REMAINS INTACT WITH NO S/S OF INFILTRATION OR SWELLING NOTED-FOR CONTINUATION OF IV ATB FOR C.DIFF WITH HOSPICE FOR 14 DAYS.ADMINISTERED IV ATB ROCEPHIN AND VANCOCIN PO.PT DENIES ANY PAIN OR DISTRESS.DISCHARGED PT TO [facility] WITH STABLE V/S.
--- NOTE | 2018-07-19 18:10 | NUR ---
PT WAS DISCHARGED WITH TWO UROSTOMY BAG EMPTIED WITH 680 ML YELLOW URINE OUTPUT.DRESSING CLEAN AND DRY.PAPER TAPED UROSTOMY TUBE IN THE BACK OF THE PT SO IT WON'T BE HANGING DURING TRANSFERS.JAH [facility] AWARE.
[2018-07-20 13:11] LABS: CALCITRIOL VIT D,1, 25 DIHYDRO 18.1 pg/mL (19.9-79.3)
== END 2018-07-19 18:00 | disposition hospice, home (50) | DRG 871 ==
LOC: ER 09:06 → MEDSG2 13:18
PROVIDERS: ADMIT Nurse Practitioner Acute Care; ATTEND Nurse Practitioner Acute Care
DX: A41.9 Sepsis, unspecified organism (principal); N17.0 Acute kidney failure with tubular necrosis; E43 Unspecified severe protein-calorie malnutrition; N39.0 Urinary tract infection, site not specified; K57.32 Diverticulitis of large intestine without perforation or abscess without bleeding; R64 Cachexia; Z68.1 Body mass index [BMI] 19.9 or less, adult; A04.72 Enterocolitis due to Clostridium difficile, not specified as recurrent; I69.354 Hemiplegia and hemiparesis following cerebral infarction affecting left non-dominant side; N18.9 Chronic kidney disease, unspecified; E78.5 Hyperlipidemia, unspecified; E83.42 Hypomagnesemia; E87.6 Hypokalemia; Z87.891 Personal history of nicotine dependence; B96.1 Klebsiella pneumoniae [K. pneumoniae] as the cause of diseases classified elsewhere; B96.89 Other specified bacterial agents as the cause of diseases classified elsewhere; I12.9 Hypertensive chronic kidney disease with stage 1 through stage 4 chronic kidney disease, or unspecified chronic kidney disease; E88.09 Other disorders of plasma-protein metabolism, not elsewhere classified; C61 Malignant neoplasm of prostate; D53.9 Nutritional anemia, unspecified; Z93.6 Other artificial openings of urinary tract status; N32.3 Diverticulum of bladder; K59.00 Constipation, unspecified; Z51.5 Encounter for palliative care
CPT/HCPCS: 36415; 80048-TC; 80053-TC; 80061-TC; 80076-TC; 80202-TC; 81000-TC; 82306; 82550-TC; 82570-TC; 82652; 82728-TC; 82746; 83540-TC; 83605-TC; 83735-TC; 83970; 84100-TC; 84153-TC; 84154-TC; 84155; 84155-TC; 84165; 84300-TC; 84443-TC; 85025-TC; 87040-TC; 87081-TC; 87086-TC; 87186-TC; 97110-TC; 97116-TC; 97530-TC; A4216; A4606; C9113; J0696; J2405; J2543; J3370; J3475; J3480; J3490; J7030; J7040; J7060; J7512; Z7610

== ENCOUNTER 2018-08-05 17:59 | Inpatient (IN) | payer MEDICARE, OTHER ==
[~2018-08-05] VITALS: Ht 175.3 cm; Wt 57.2 kg
[~2018-08-05 17:59] MED LIST: ABIR250T PO; ACET325T53 PO; AMIO200T4 PO; AMLO2.5T2 PO; ASPI-1169 PO; ATOR10TA PO; CALC0.5C11 PO; CEFT1PIG2 IV; ONDA4TAB10 PO; PANT40TA4 PO; PRED1TAB PO; RXTOB XX; VANC500V PO
--- NOTE | 2018-08-05 18:00 | NUR ---
AAOX3, BIBRA 102 FROM [facility] C/O BLOOD NOTICED IN THE NEPHROSTOMY BAG. SKIN IS WARM AND DRY. RESP IS EVEN AND UNLABORED WITH NAD NOTED. DENIES ANY PAIN AT THIS TIME. AWAITING MD FOR EVAL.
[2018-08-05 18:26] LABS: BASOPHILS % (AUTO) 0.4 % (0.0-2.0); HEMATOCRIT 31 % (39-51); HEMOGLOBIN 10.4 g/dL (13.5-17.5); LYMPHOCYTES % (AUTO) 12.3 % (20.0-44.0); MEAN CORPUSCULAR HGB CONC 34 g/dl (31.0-36.0); MEAN CORPUSCULAR VOLUME 94 fL (80-96); MONOCYTES # (AUTO) 0.7 /CMM (0.1-1.30); MONOCYTES % (AUTO) 9.1 % (2.0-12.0); NEUTROPHILS # (AUTO) 5.9 /CMM (1.8-8.9); NEUTROPHILS % (AUTO) 76.2 % (43.0-81.0); PLATELET COUNT (AUTO) 226 /CMM (150-450); RDW COEFFICIENT OF VARIATION 13.3 (11.5-15.0); RED BLOOD CELL COUNT(AUTO) 3.25 MIL/uL (4.5-6.0); WHITE BLOOD COUNT (AUTO) 7.8 K/uL (4.3-11.0)
[2018-08-05] MEDS ORDERED: IV NS 0.9% 1,000 ML BAG IV ONE (18:30)
--- NOTE | 2018-08-05 18:35 | NUR ---
IV ACCESS STARTED. BLOOD DRAWN FOR LABS. URINE SAMPLE OBTAINED AND SENT.
[2018-08-05 18:37] LABS: CALCIUM, SERUM 10.2 mg/dL (8.5-10.1); CARBON DIOXIDE 34 mmol/L (21-32); CHLORIDE 107 mmol/L (98-107); CREATININE 2.1 mg/dL (0.6-1.3); GLUCOSE 115 mg/dL (74-106); SODIUM SERUM 142 mmol/L (136-145); UREA NITROGEN, BLOOD 37 mg/dL (7-18)
[2018-08-05 18:51] LABS: APPEARANCE,URINE Cloudy (CLEAR); BILIRUBIN,URINE SMALL (NEGATIVE); BLOOD, URINE Large Ery/uL (NEGATIVE); COLOR,URINE Amber (YELLOW); KETONES,URINE Negative (NEGATIVE); LEUKOCYTE ESTERASE ,URINE Small (NEGATIVE); NITRITE, URINE Positive (NEGATIVE); PH,URINE 6.5 (5.0-8.0); UGLUCOSE Negative (NEGATIVE); UROBILINOGEN,URINE 0.2 EU/dL (0.2)
[2018-08-05 18:52] LABS: PROTEIN,URINE >300 mg/dl (NEGATIVE)
[2018-08-05 19:09] LABS: BACTERIA,URINE Moderate /HPF (None Seen); RBC,URINE 21-50 /HPF (0-2); SQUAMOUS EPITHELIAL CELL,UR Few /HPF (None Seen)
--- NOTE | 2018-08-05 19:12 | NUR ---
REPORT GIVEN TO SUN KIRK FOR DRU.
--- NOTE | 2018-08-05 19:13 | NUR ---
REPORT RECEIVED FROM REAGAN BEAVER FOR DRU.
--- NOTE | 2018-08-05 19:42 | NUR ---
ULTRASOUND AT BEDSIDE.
--- NOTE | 2018-08-05 20:38 | NUR ---
REPORT GIVEN TO REAGAN MCGHEE FOR DRU. PT TBA MS 324.2.
--- NOTE | 2018-08-05 21:10 | NUR ---
PT ASSIGNMENT CHANGED TO TELE BED.
--- NOTE | 2018-08-05 21:20 | NUR ---
TELE/RN NOTES RECEIVED PT. FROM ER [facility]IA [employer]. PT. IS AWAKE, ALERT AND ORIENTED X3. BREATHING EVEN AND UNLABORED ON ROOM AIR. NO SOB, RESPIRATORY DISTRESS OR COMPLAINTS OF PAIN NOTED AT THIS TIME. ORIENTED PT. TO ROOM. PLACED EXTERNAL REGIONAL RETAIL SALES MANAGER ON PT. CURRENT RHYTHM = SINUS BRADYCARDIA WITH BBB HR 59. PT. WITH LEFT FOREARM 20 GAUGE IV SALINE LOCK PRESENT, PATENT AND INTACT. PT. WITH BILATERAL NEPHROSTOMY TUBES PRESENT AND INTACT, BOTH DRAINING URINE WITH BRIGHT RED BLOOD NOTED. BED LOCKED AND IN LOWEST POSITION, SIDE RAILS UP X3, BED ALARM ON, CALL LIGHT WITHIN REACH. AWAITING ADMITTING ORDERS. WILL CONTINUE TO MONITOR.
--- NOTE | 2018-08-05 21:30 | NUR ---
PT TRANSPORTED TO TELE 324.2 VIA STRETCHER ON EPIC ANESTHESIA ANALYST WITH RN PER ACLS PROTOCOL. VSS.
--- NOTE | 2018-08-05 21:40 | NUR ---
TELE/RN NOTES PT. WITH DRESSING PRESENT ON LOWER BACK AND SACRUM. PT. REFUSING TO HAVE DRESSINGS REMOVED AND SKIN UNDERNEATH EXAMINED. WILL CONTINUE TO MONITOR.
--- NOTE | 2018-08-05 22:26 | NUR ---
TELE/RN NOTES CALLED [facility] [employer] ART[employer] REPAIRER SERVICE TO NOTIFY MD WILSON AWAITING ADMITTING ORDERS. PER [employer] ARTILL[employer] REPAIRER SERVICE MD WILSON PAGED AND DID NOT ANSWER. PER [employer] ARTILLERY REPAIRER SERVICE MD WILSON WILL BE PAGED AGAIN. AWAITING CALL BACK. WILL CONTINUE TO MONITOR.
[2018-08-05 23:00] VITALS: BP 155/80
--- NOTE | 2018-08-05 23:11 | NUR ---
TELE/RN NOTES RECEIVED CALL BACK FROM [facility] TRANSITION MANAGER MD WILSON. MD WILSON STATED HE IS CURRENTLY WORKING ON ADMISSION ORDERS AND THEY WILL BE IN SHORTLY. WILL CONTINUE TO MONITOR.
[2018-08-05] MEDS ORDERED: ACETAMINOPHEN 325 MG TABLET PO PRN (23:30)
[2018-08-05] MEDS ORDERED: Z GUARD REMEDY 2 OZ OINT TP PRN (23:30)
[2018-08-05] MEDS ORDERED: MORPHINE SULFATE INJ 2 MG/ML DISP.SYRIN IV PRN (23:30)
[2018-08-05] MEDS ORDERED: ONDANSETRON HCL/PF 4 MG/2 ML VIAL IVP PRN (23:30)
--- NOTE | 2018-08-05 23:30 | NUR ---
TELE/RN NOTES CHARGE NURSE CONTACTS [facility] AND SPOKE WITH JAH WHO STATED THEY HAVE THE PATIENTS ZYTIGA MEDICATION AND SOMEONE WILL DELIVER IT TO THE HOSPITAL IN THE MORNING BETWEEN 8-9. CONTACT NUMBER . WILL HOLD PT. BREAKFAST IN THE MORNING IN ORDER TO TAKE MEDICATION ON AN EMPTY STOMACH. WILL CONTINUE TO MONITOR.
[2018-08-05 23:42] LABS: ALBUMIN 2.8 g/dL (3.4-5.0); BILIRUBIN,DIRECT 0.1 mg/dL (0.0-0.2); BILIRUBIN,TOTAL 0.3 mg/dL (0.2-1.0); TOTAL PROTEIN, SERUM 6.4 g/dL (6.4-8.2)
[2018-08-06] VITALS: BP 131/63
[2018-08-06 00:08] LABS: TROPONIN I 0.111 ng/mL (0.00-0.056)
--- NOTE | 2018-08-06 00:09 | NUR ---
TELE/RN NOTES NOTIFIED EPIC PRESSER AUTOMATIC PT. RIGHT NEPHROSTOMY DRAINING RED TINGED OUTPUT. PT. LEFT NEPHROSTOMY DRAINING DARK RED OUTPUT. PER MD NEW ORDER: DISCONTINUE SCHEDULED ASPIRIN MEDICATION. WILL CARRY OUT ORDER. WILL CONTINUE TO MONITOR.
[2018-08-06] MEDS ORDERED: IV PREMIX 0.45% NS + KCL 1,000 ML IV ONE (01:44)
[2018-08-06] MEDS ORDERED: ALBUTEROL FS 2.5 MG/3 ML VIAL.NEB NEB PRN (02:00)
[2018-08-06] MEDS: IV PREMIX 0.45% NS + KCL 1,000 ML IV PRN ×2 (02:03→18:09)
[2018-08-06 04:00] VITALS: BP 155/73
--- NOTE | 2018-08-06 06:25 | NUR ---
TELE/RN NOTES PT. IS LYING IN BED RESTING. BREATHING EVEN AND UNLABORED ON ROOM AIR. NO SOB, RESPIRATORY DISTRESS OR COMPLAINTS OF PAIN NOTED AT THIS TIME. PT. 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 PT. WITH LEFT FOREARM 20 GAUGE PERIPHERAL IV PRESENT, PATENT AND INTACT ADMINISTERING TO PT. IV 1/2 NS WITH 20 MEQ KCL @ 70 ML/HR. PT. WITH BILATERAL NEPHROSTOMY TUBES PRESENT AND INTACT, RIGHT NEPHROSTOMY TUBE DRAINING CLOUDY YELLOW OUTPUT, LEFT NEPHROSTOMY DRAINING DARK RED OUTPUT. ALL PT. NEEDS MET. PT. OFFLOADED, TURNED AND REPOSITIONED Q2H AND NEEDED. BED LOCKED AND IN LOWEST POSITION, SIDE RAILS UP X3, BED ALARM ON, CALL LIGHT WITHIN REACH. WILL ENDORSE TO DAYSHIFT NURSE FOR CONTINUITY OF CARE.
[2018-08-06] MEDS ORDERED: MORPHINE SULFATE INJ 4 MG/ML DISP.SYRIN IV PRN (06:56)
[2018-08-06 07:05] LABS: OCCULT BLOOD STOOL NEGATIVE (NEGATIVE)
--- NOTE | 2018-08-06 07:11 | NUR ---
NURSERY TEACHER NOTES PATIENT RECEIVED RESTING INSIDE ROOM. AWAKE, ALERT AND ORIENTED, VERBALLY RESPONSIVE AND RESPONDS TO VERBAL AND TACTILE STIMULI. BREATHING EVEN AND UNLABORED. NO SOB OR ACUTE DISTRESS NOTED. PATIENT CALM AND RELAXED. DENIES ANY PAIN OR DISCOMFORT. BILATERAL NEPHROSTOMY DRAINING, NOTED WITH DARK RED URINE OUTPUT ON LEFT NEPHROSTOMY BAG AND CLOUDY YELLOW URINE OUTPUT ON RIGHT. IV INTACT AND PATENT. WILL CONTINUE TO MONITOR. BED LOCKED AND IN LOW POSITION. BILATERAL UPPER SIDE RAILS UP AND LOCKED. CALL LIGHT WITHIN EASY REACH
[2018-08-06 07:31] LABS: BASOPHILS % (AUTO) 0.2 % (0.0-2.0); EOSINOPHILS % (AUTO) 2.7 % (0.0-6.0); HEMATOCRIT 29 % (39-51); HEMOGLOBIN 9.5 g/dL (13.5-17.5); LYMPHOCYTES # (AUTO) 1.1 /CMM (0.8-4.8); LYMPHOCYTES % (AUTO) 11.4 % (20.0-44.0); MEAN CORPUSCULAR HGB CONC 33 g/dl (31.0-36.0); MEAN CORPUSCULAR VOLUME 97 fL (80-96); MONOCYTES # (AUTO) 0.9 /CMM (0.1-1.30); MONOCYTES % (AUTO) 9.4 % (2.0-12.0); NEUTROPHILS # (AUTO) 7.1 /CMM (1.8-8.9); NEUTROPHILS % (AUTO) 76.3 % (43.0-81.0); PLATELET COUNT (AUTO) 204 /CMM (150-450); WHITE BLOOD COUNT (AUTO) 9.3 K/uL (4.3-11.0)
[2018-08-06 07:36] LABS: ALANINE AMINOTRANSFERASE 14 U/L (12-78); ALBUMIN 2.7 g/dL (3.4-5.0); ALKALINE PHOSPHATASE 131 U/L (46-116); ASPARTATE AMINOTRANSFERASE 39 U/L (15-37); BILIRUBIN,TOTAL 0.3 mg/dL (0.2-1.0); CARBON DIOXIDE 30 mmol/L (21-32); CHLORIDE 109 mmol/L (98-107); CREATININE 1.9 mg/dL (0.6-1.3); GLUCOSE 83 mg/dL (74-106); PHOSPHORUS 3.7 mg/dL (2.5-4.9); SODIUM SERUM 148 mmol/L (136-145); UREA NITROGEN, BLOOD 28 mg/dL (7-18)
[2018-08-06 07:38] LABS: TROPONIN I 0.129 ng/mL (0.00-0.056)
[2018-08-06 07:47] LABS: IRON, SERUM 66 ug/dl (50-175); TOTAL IRON BINDING CAPACITY 148 ug/dl (250-450)
--- NOTE | 2018-08-06 07:50 | NUR ---
URGENT CARE NOTES PLACED CALL TO [facility] , SPOKE WITH JAH AND VERIFIED THAT [facility] WILL BE DELIVERED HERE THIS AM. WILL CONTINUE TO MONITOR
[2018-08-06 07:56] LABS: POTASSIUM 2.8 mmol/L (3.5-5.1)
[2018-08-06 08:00] VITALS: BP 158/75
[2018-08-06] MEDS ORDERED: AMIODARONE HCL 200 MG TABLET PO SCH (09:00)
[2018-08-06] MEDS ORDERED: ASPIRIN 81 MG TAB.CHEW PO SCH (09:00)
[2018-08-06] MEDS ORDERED: AMLODIPINE BESYLATE 2.5 MG TABLET PO SCH (09:00)
[2018-08-06] MEDS: AMLODIPINE BESYLATE 5 MG TABLET PO SCH (09:00)
[2018-08-06] MEDS: ABIRATERONE ACETATE PO SCH (09:48)
[2018-08-06] MEDS: CHOLECALCIFEROL 1,000 UNIT TABLET (VIT D3) PO SCH (10:06)
[2018-08-06] MEDS: PANTOPRAZOLE 40 MG TABLET.DR PO SCH (10:06)
[2018-08-06] MEDS: predniSONE 1 MG TABLET PO SCH (10:06)
[2018-08-06] MEDS: CALCITRIOL 0.25 MCG CAPSULE PO SCH (10:11)
--- NOTE | 2018-08-06 10:12 | NUR ---
DIRECT CARE SUPERVISOR NOTES JAH FROM [facility] DELIVERED SOME OF PATIENT'S BELONGINGS INCLUDING A PAIR OF READING GLASSES WITH CLOTH CASE, HOME MEDICATION (ZYTIGA 250MG X 92), AND AN UNKNOWN SUBSTANCE, 0.5 ML OF HONEY-COLORED FLUID IN A 3ML SYRINGE, UNLABELED. ASKED PATIENT IF HE KNOWS WHAT THE SUBSTANCE IS BUT PATIENT DOES NOT WANT TO SAY ANYTHING, PATIENT VERBALIZES THAT HE CANNOT PRONOUNCE THE NAME OF THE SUBSTANCE AND WOULD SAY THAT DOES NOT KNOW. PLACED CALL TO DAUGHTER, DELMI ALCAZAR ([phone]) AND VERIFIED SUBSTANCE. PER DELMI ALCAZAR, SUBSTANCE IS CBD OIL AND THAT IT IS HERS AND ACCIDENTALLY LEFT WITH THE PATIENT WHEN SHE CAME TO VISIT. VERBALIZED THAT SHE WILL GET IT FROM THE PATIENT ON A ANOTHER DAY. INFORMED CHARGE NURSE AND NURSING LEAD DATABASE ADMINISTRATOR. SUBSTANCE IN SYRINGE GIVEN TO LEAD DATABASE ADMINISTRATOR FOR SAFEKEEPING, BAG # [id number]. ZYTIGA MEDICATION GIVEN TO PHARMACY WITH BAG # [id number]. PATIENT MADE AWARE AND VERBALIZED UNDERSTANDING. WILL CONTINUE TO MONITOR
[2018-08-06] MEDS ORDERED: POTASSIUM CHLORIDE 20 MEQ TAB.PRT.SR PO ONE (11:30)
--- NOTE | 2018-08-06 11:30 | NUR ---
HOME IMPROVEMENT ADVISOR NOTES PATIENT SEEN AND EXAMINED BY MARQUITA MORRISON DO. NOTIFIED REGARDING POTASSIUM LEVEL OF 2.8. WITH NEW ORDERS TO RESUME KCL 20MEQ IN 1L 1/2 NS. AND TO GIVE KCL 20MEQ X 2 TABS = 40MEQ PO TODAY. ORDER NOTED AND CARRIED OUT. PATIENT MADE AWARE AND VERBALIZED UNDERSTANDING. PHARMACY MADE AWARE. WILL CONTINUE TO MONITOR
[2018-08-06 16:00] VITALS: BP 176/94
--- NOTE | 2018-08-06 16:56 | NUR ---
Spoke with Eliana [facility] jennifer, patient resides at the [facility] [phone], he is bedbound and totally dependent with adl's. DME available are hospital bed, wheelchair and shower chair. He is currently on service with [facility] [phone]. Patient will need ambulance to return to board and care . Addendum: 08/06/18 at 1657 by SUZETTE BALDWIN RN Amended: Links added.
--- NOTE | 2018-08-06 19:30 | NUR ---
MS RN NOTES RECEIVED RESTING COMFORTABLY ON BED,A/O X4,BREATHING REGULAR,NOT IN ANY FORM OF DISTRESS.WITH BILATERAL NEPHROSTOMY TUBE,RIGHT DRAINS TEA COLORED URINE,LEFT DRAINS DRAINS SLIGHTLY BLOOD TINGE URINE.WITH IVF 1/2 NS WITH 20 MEQ KCL INFUSING AT 70ML/HR RATE, SITE PATENT.CALL LIGHT IN REACH,NEEDS ANTICIPATED.
--- NOTE | 2018-08-06 19:32 | NUR ---
MS RN NOTES PATIENT RESTING INSIDE ROOM. AWAKE, ALERT AND ORIENTED. VERBALLY RESPONSIVE AND RESPONDS TO VERBAL AND TACTILE STIMULI. NO CHANGES IN LOC NOTED. BIALTERAL NEPHROSTOMY IN PLACE AND DRAINING TEA-COLORED URINE ON BOTH BAGS. IV INTACT AND PATENT, RUNNING KCL 20MEQ IN 1L NS. PATIENT CALM AND RELAXED. NO CHANGES IN LOC NOTED .BREATHING EVEN AND UNLABORED. NO SOB OR ACUTE DISTRESS. ENDORSED TO INCOMING SHIFT FOR DRU. BED LOCKED AND IN LOW POSITION. BILATERAL UPPER SIDE RAILS UP AND LOCKED. CALL LIGHT WITHIN EASY REACH
[2018-08-06 20:00] VITALS: BP 157/80
[2018-08-06] MEDS ORDERED: ATORVASTATIN 10 MG TABLET PO SCH (22:00)
--- NOTE | 2018-08-07 06:09 | NUR ---
MS RN NOTES NO SIGNIFICANT CHANGE IN STATUS,NEPHROSTOMY TUBE RIGHT SIDE DRAINS WELL,PINKISH IN COLOR.PAIN TOLERABLE THRU OUT SHIFT.AWAITING UROLOGY CONSULT.CALL LIGHT IN REACH,NEEDS ATTENDED.WILL ENDORSE TO DAY NURSE FOR DRU.
[2018-08-07] MEDS: ABIRATERONE ACETATE PO SCH (07:22)
[2018-08-07] MEDS: PANTOPRAZOLE 40 MG TABLET.DR PO SCH (07:30)
[2018-08-07 07:31] LABS: BASOPHILS % (AUTO) 0.2 % (0.0-2.0); EOSINOPHILS % (AUTO) 3.1 % (0.0-6.0); HEMATOCRIT 32 % (39-51); HEMOGLOBIN 10.4 g/dL (13.5-17.5); LYMPHOCYTES % (AUTO) 11.2 % (20.0-44.0); MEAN CORPUSCULAR HGB CONC 33 g/dl (31.0-36.0); MEAN CORPUSCULAR VOLUME 97 fL (80-96); MONOCYTES # (AUTO) 0.8 /CMM (0.1-1.30); MONOCYTES % (AUTO) 8.6 % (2.0-12.0); NEUTROPHILS # (AUTO) 6.7 /CMM (1.8-8.9); NEUTROPHILS % (AUTO) 76.9 % (43.0-81.0); PLATELET COUNT (AUTO) 199 /CMM (150-450); RDW COEFFICIENT OF VARIATION 14.5 (11.5-15.0); RED BLOOD CELL COUNT(AUTO) 3.28 MIL/uL (4.5-6.0); WHITE BLOOD COUNT (AUTO) 8.7 K/uL (4.3-11.0)
[2018-08-07 07:50] LABS: TROPONIN I 0.123 ng/mL (0.00-0.056)
[2018-08-07 07:59] LABS: ALANINE AMINOTRANSFERASE 12 U/L (12-78); ALBUMIN 2.8 g/dL (3.4-5.0); ALKALINE PHOSPHATASE 139 U/L (46-116); ASPARTATE AMINOTRANSFERASE 43 U/L (15-37); BILIRUBIN,TOTAL 0.4 mg/dL (0.2-1.0); CALCIUM, SERUM 10.1 mg/dL (8.5-10.1); CARBON DIOXIDE 30 mmol/L (21-32); CHLORIDE 109 mmol/L (98-107); CREATININE 1.8 mg/dL (0.6-1.3); GLUCOSE 75 mg/dL (74-106); MAGNESIUM 1.8 mg/dL (1.8-2.4); SODIUM SERUM 146 mmol/L (136-145); TOTAL PROTEIN, SERUM 6.2 g/dL (6.4-8.2); UREA NITROGEN, BLOOD 24 mg/dL (7-18)
[2018-08-07 08:00] VITALS: BP 169/78
--- NOTE | 2018-08-07 08:00 | NUR ---
MS RN NOTES PATIENT RECEIVED RESTING INSIDE ROOM. AWAKE, ALERT AND ORIENTED X 4. VERBALLY RESPONSIVE AND RESPONDS TO VERBAL AND TACTILE STIMULI. ABLE TO MAKE NEEDS KNOWN AND FOLLOW SIMPLE INSTRUCTIONS. BREATHING EVEN AND UNLABORED. NO SOB OR ACUTE DISTRESS. DENIES ANY PAIN OR DISCOMFORT. NO CHANGES IN LOC NOTED. IV INTACT AND PATENT. BILATERAL NEPHROSTOMY DRAINING, NOTED WITH PINKISH URINE OUTPUT ON RIGHT BAG AND WITH DARK RED OUTPUT ON LEFT. IV INTACT AND PATENT WITH KCL 20MEQ IN 1L NS. WILL CONTINUE TO MONITOR. BED LOCKED AND IN LOW POSITION. BILATERAL UPPER SIDE RAILS UP AND LOCKED. CALL LIGHT WITHIN EASY REACH
[2018-08-07 08:28] LABS: POTASSIUM 2.8 mmol/L (3.5-5.1)
[2018-08-07] MEDS: CHOLECALCIFEROL 1,000 UNIT TABLET (VIT D3) PO SCH (09:00)
[2018-08-07] MEDS: CALCITRIOL 0.25 MCG CAPSULE PO SCH (09:00)
[2018-08-07] MEDS: predniSONE 1 MG TABLET PO SCH (09:00)
[2018-08-07] MEDS: AMLODIPINE BESYLATE 5 MG TABLET PO SCH (09:00)
[2018-08-07] MEDS: POTASSIUM CHLORIDE 20 MEQ TAB.PRT.SR PO SCH ×6 (09:14→12:55)
[2018-08-07] MEDS: IV PREMIX 0.45% NS + KCL 1,000 ML IV PRN (09:18)
--- NOTE | 2018-08-07 09:59 | NUR ---
MS RN NOTES PATIENT SEEN BY UROLOGIST JASWINDER STEPHENS. WITH NEW ORDERS FOR BILATERAL NEPHROSTOMY TUBES TO BE REPLACED ON 08/08/18. ALSO FOR VANCOMYCIN FOR PHARMACY TO DOSE X 1 DOSE, AND FOR ZOSYN IV Q6 UNTIL 08/08/18 FOR A TOTAL OF 4 DOSES OF ZOSYN. PATIENT AWARE AND VERBALIZED UNDERSTANDING. PHARMACY AWARE. WILL CONTINUE TO MONITOR
[2018-08-07] MEDS ORDERED: FEE PK DOSING 1 MIN EA MC ONE (10:10)
[2018-08-07] MEDS ORDERED: VANCOMYCIN 0.75 GM in IV D5W 250 ML IV SCH (11:00)
[2018-08-07] MEDS ORDERED: VANCOMYCIN 1 GM in IV NS 0.9% 250 ML IV ONE (11:00)
[2018-08-07 11:11] LABS: INR 1.06 (0.87-1.13)
--- NOTE | 2018-08-07 12:00 | NUR ---
MS RN NOTES VERIFIED INFORMED CONSENT OBTAINED BY MD FROM PATIENT REGARDING BILATERAL NEPHROSTOMY REPLACEMENT FOR 08/08/18 AND WITNESSED BY NURSING STAFF. RADIOLOGY AWARE. NURSING DIRECTOR OF SPECIAL EDUCATION AWARE. PATIENT TO BE NPO AFTER MIDNIGHT. PT/INR/PTT ORDER IN PLACE AND VERIFIED WITH DR. BOSWELL. PATIENT AWARE AND VERBALIZED UNDERSTANDING. WILL CONTINUE TO MONITOR
[2018-08-07] MEDS: PIPERACILLIN /TAZOBACTAM 2.25 G in IV D5W 50 ML IV SCH ×3 (12:03→23:42)
--- NOTE | 2018-08-07 12:50 | NUR ---
MS RN NOTES PATIENT REFUSED TO TAKE KCL 20MEQ DOSE 3 OF 5. RISKS AND BENEFITS EXPLAINED BUT TO NO AVAIL. OFFERED X 3, PATIENT STRONGLY REFUSED AND SAID HE DOES NOT WANT TO TAKE ANY MORE POTASSIUM TABLETS AND WOULD RATHER HAVE IV. DR. MORRISON PRESENT AT UNIT AND MADE AWARE. WITH NEW ORDERS TO START KCL 10MEQ/50ML IV Q1 X 3 DOSES, TO CONTINUE PREVIOUS ORDER FOR KCL 20MEQ IN 1L NS AFTERWARDS . ORDER NOTED AND CARRIED OUT. PATIENT MADE AWARE AND VERBALIZED UNDERSTANDING. WILL CONTINUE TO MONITOR
[2018-08-07] MEDS: POTASSIUM CHLORIDE 10 MEQ/50 ML PREMIXED IVPB FOR PERIPHERAL LINE IV SCH ×3 (15:15→18:25)
[2018-08-07 16:00] VITALS: BP 160/73
--- NOTE | 2018-08-07 19:02 | NUR ---
MS RN NOTES PATIENT RESTING INSIDE ROOM. AWAKE, ALERT AND ORIENTED. VERBALLY RESPONSIVE AND RESPONDS TO VERBAL AND TACTILE STIMULI. BREATHING EVEN AND UNLABORED. NO SOB OR ACUTE DISTRESS AT THIS TIME. PATIENT CALM AND RELAXED. NO CHANGES IN LOC NOTED. IV INTACT AND PATENT. BILATERAL NEPHROSTOMY TUBES IN PLACE. ENDORSED TO INCOMING SHIFT FOR DRU. BED LOCKED AND IN LOW POSITION. BILATERAL UPPER SIDE RAILS UP AND LOCKED. CALL LIGHT WITHIN EASY REACH
--- NOTE | 2018-08-07 19:30 | NUR ---
MS RN NOTES RECEIVED ON BED A/O X3-4,BREATHING NORMAL,NOT IN ANY FOR DISTRESS.LAST BAG OF IV POTASSIUM INFUSING VIA IV PUMP,SITE PATENT LEFT HAND.WITH BILATERAL NEPHROSTOMY BAG,DRAIN SCANTY BLOODY ON THE LEFT,YELLOWISH ON THE RIGHT.FALL PRECAUTION OBSERVED.BED ON LOWEST POSITION AND LOCKED.CALL LIGHT IN REACH,NEEDS ANTICIPATED.
[2018-08-07 20:00] VITALS: BP 152/58
--- NOTE | 2018-08-08 03:06 | NUR ---
MS RN NOTES AWAKE,MOANING IN PAIN ON HIS RIGHT SIDE RIB CAGE,8/10 0 PAIN SCALE.MEDICATED WITH MORPHINE 1MG IV ORDERED.
[2018-08-08] MEDS: PIPERACILLIN /TAZOBACTAM 2.25 G in IV D5W 50 ML IV SCH ×2 (05:30→12:00)
--- NOTE | 2018-08-08 06:38 | NUR ---
MS RN NOTES MORPHINE FOR PAIN MANAGEMENT EFFECTIVE.FOR BILATERAL NEPHROSTOMY TUBE REPLACEMENT TODAY BY DR BOSWELL.CONSENT ON CHART.IVF INFUSING.IN NO ACUTE DISTRESS.WILL ENDORSE TO DAY NURSE FOR DRU.
[2018-08-08 07:00] LABS: ALANINE AMINOTRANSFERASE 14 U/L (12-78); ALBUMIN 2.7 g/dL (3.4-5.0); ALKALINE PHOSPHATASE 137 U/L (46-116); ASPARTATE AMINOTRANSFERASE 39 U/L (15-37); BILIRUBIN,TOTAL 0.5 mg/dL (0.2-1.0); CALCIUM, SERUM 10.4 mg/dL (8.5-10.1); CARBON DIOXIDE 28 mmol/L (21-32); CHLORIDE 108 mmol/L (98-107); CREATININE 1.7 mg/dL (0.6-1.3); GLUCOSE 81 mg/dL (74-106); MAGNESIUM 1.8 mg/dL (1.8-2.4); PHOSPHORUS 3.2 mg/dL (2.5-4.9); POTASSIUM 3.4 mmol/L (3.5-5.1); SODIUM SERUM 145 mmol/L (136-145); TOTAL PROTEIN, SERUM 6.1 g/dL (6.4-8.2); UREA NITROGEN, BLOOD 21 mg/dL (7-18)
[2018-08-08 07:10] LABS: BASOPHILS % (AUTO) 0.3 % (0.0-2.0); EOSINOPHILS % (AUTO) 3.1 % (0.0-6.0); HEMATOCRIT 31 % (39-51); HEMOGLOBIN 9.9 g/dL (13.5-17.5); LYMPHOCYTES % (AUTO) 11.1 % (20.0-44.0); MEAN CORPUSCULAR HGB CONC 32 g/dl (31.0-36.0); MEAN CORPUSCULAR VOLUME 96 fL (80-96); MONOCYTES # (AUTO) 0.8 /CMM (0.1-1.30); MONOCYTES % (AUTO) 8.7 % (2.0-12.0); NEUTROPHILS # (AUTO) 6.9 /CMM (1.8-8.9); NEUTROPHILS % (AUTO) 76.8 % (43.0-81.0); PLATELET COUNT (AUTO) 191 /CMM (150-450); RED BLOOD CELL COUNT(AUTO) 3.28 MIL/uL (4.5-6.0)
[2018-08-08] MEDS: PANTOPRAZOLE 40 MG TABLET.DR PO SCH (07:30)
--- NOTE | 2018-08-08 07:32 | NUR ---
MS RN NOTES PATIENT RECEIVED RESTING INSIDE ROOM. AWAKE, ALERT AND ORIENTED. VERBALLY RESPONSIVE AND RESPONDS TO VERBAL AND TACTILE STIMULI. BREATHING EVEN AND UNLABORED. NO SOB OR ACUTE DISTRESS AT THIS TIME. PATIENT CALM AND RELAXED. NO CHANGES IN LOC NOTED. PATIENT FOR BILATERAL NEPHROSTOMY TUBE REPLACEMENT THIS AM, NPO SINCE AFTER MIDNIGHT PER SHIFT REPORT. WILL CONTINUE TO MONITOR. BED LOCKED AND IN LOW POSITION. BILATERAL UPPER SIDE RAILS UP AND LOCKED. CALL LIGHT WITHIN EASY REACH
[2018-08-08 08:00] VITALS: BP 150/84
--- NOTE | 2018-08-08 08:45 | NUR ---
MS RN NOTES [facility] WITH REPORT OF (+) VRE FROM URINE SPECIMEN. CHARGE NURSE AND INFECTION CONTROL MADE AWARE. PER INFECTION CONTROL, PATIENT WAS PREVIOUSLY IN THE HOSPITAL AND WAS ON ISOLATION 2 C-DIFF. INITIATED ISOLATION PRECAUTIONS. CENTRAL SUPPLY MADE AWARE. PATIENT MADE AWARE AND VERBALIZED UNDERSTANDING. WILL CONTINUE TO MONITOR
[2018-08-08] MEDS: AMLODIPINE BESYLATE 5 MG TABLET PO SCH (08:49)
[2018-08-08] MEDS: CALCITRIOL 0.25 MCG CAPSULE PO SCH (08:49)
[2018-08-08] MEDS: predniSONE 1 MG TABLET PO SCH (08:49)
[2018-08-08] MEDS: CHOLECALCIFEROL 1,000 UNIT TABLET (VIT D3) PO SCH (08:49)
[2018-08-08] MEDS ORDERED: POTASSIUM CL. PREMIX PERIPHER. 50 ML IV SCH (10:30)
[2018-08-08] MEDS: LINEZOLID 600 MG TABLET PO SCH ×2 (11:30→20:15)
--- NOTE | 2018-08-08 11:50 | NUR ---
WOUND CARE CONSULT: PT PRESENTS WITH RASH TO GROIN, PERINEAL AREAS AND INNER BUTTOCKS, PRESENT ON ADMISSION. PT ALSO NOTED TO HAVE SKIN STAINING AND PIGMENT IRREGULARITIES TO SACRAL/BUTTOCK AREAS. BILAT NEPHROSTOMY TUBES NOTED. ALL SKIN PROTECTION RECOMMENDATIONS DISCUSSED WITH NURSING STAFF. WILL SEE PRN. MIXON IN AGREEMENT WITH PLAN OF CARE. Addendum: 08/08/18 at 1151 by EZIO HOFFMANN WNDNU Amended: Links added.
[2018-08-08 12:00] VITALS: BP 182/75
[2018-08-08] MEDS ORDERED: PIPERACILLIN /TAZOBACTAM 3.375 G in IV D5W 50 ML IV SCH (12:00)
--- NOTE | 2018-08-08 12:13 | NUR ---
MS RN NOTES PATIENT SEEN AND EXAMINED BY ID. WITH NEW ORDERS NOTED AND CARRIED OUT. PATIENT CONTINUE NPO STATUS, AWAITING FOR BILATERAL NEPHROSTOMY TUBE REPLACEMENT, CALLED RADIOLOGY TO FOLLOW-UP WITH SCHEDULE AND SAID THAT THEY WILL FOLLOW-UP WITH RADIOLOGY PHYSICIAN. PATIENT WITH ORDER FROM DR. BOSWELL FOR ZOSYN IV Q6 X 1 DAY FOR TOTAL OF 4 DOSES, STARTED ON 08/07/18 1200, 4 DOSES COMPLETED ON 08/08/18 0600. PHARMACY MADE AWARE. WILL CONTINUE TO MONITOR
--- NOTE | 2018-08-08 13:45 | NUR ---
MS RN NOTES RECEIVED CALL FROM RADIOLOGY AND SPOKE WITH WANDER, VERBALIZED THAT RADIOLOGY PHYSICIAN SPOKE WITH DR. BOSWELL AND AGREED TO RE-SCHEDULE NEPHROSTOMY TUBE REPLACEMENT TO 08/09/18 IN AM. MERCED BOURGEOIS MADE AWARE AND GAVE OK TO RESUME PREVIOUS DIET ORDERED, CARDIAC DIET STARTED. PATIENT TO PLACE NPO AFTER MIDNIGHT FOR PROCEDURE IN AM. PATIENT MADE AWARE AND VERBALIZED UNDERSTANDING. WILL CONTINUE TO MONITOR
[2018-08-08] MEDS: ABIRATERONE ACETATE PO SCH (13:51)
[2018-08-08 15:58] VITALS: BP 153/77
[2018-08-08] MEDS: CLOTRIMAZOLE/BETAMETASONE DIPROPIONATE 15 GM TUBE TP SCH (16:51)
[2018-08-08] MEDS: IV PREMIX 0.45% NS + KCL 1,000 ML IV PRN (16:53)
--- NOTE | 2018-08-08 19:00 | NUR ---
MS RN OPENING NOTE Patient was seen sitting up in bed AAOx4, breathing on RA with no SOB, and no signs of acute distress. 1/2 NS with 20mEq of KCl is running at 70ml/hr through the left FA IV with no signs of leaking or infiltration. Bilateral nephrostomy tubes are noted; drainage from the right is clear, yellow urine, and drainage from the left is bloody urine. Patient denies pain/discomfort at this time. Bed is low/locked, two side rails up, and call lindo within reach. Patient has no immediate needs or concerns at this time. Will continue to monitor.
--- NOTE | 2018-08-08 19:45 | NUR ---
MS RN NOTES PATIENT RESTING INSIDE ROOM. AWAKE, ALERT AND ORIENTED. VERBALLY RESPONSIVE AND RESPONDS TO VERBAL AND TACTILE STIMULI. NO CHANGES IN LOC NOTED. PATIENT CALM AND RELAXED. NO BOWEL MOVEMENT DURING THIS SHIFT. PATIENT VERBALIZED THAT HE DOES NOT HAVE ANY DIARRHEA EVEN DURING THE PREVIOUS DAY. CHARGE NURSE AWARE. PATIENT REMAINS AFEBRILE, SKIN DRY AND WARM TO TOUCH. IV INTACT AND PATENT. MAINTAINED ISOLATION PRECAUTION. ENDORSED TO INCOMING SHIFT FOR DRU. BED LOCKED AND IN LOW POSITION. BILATERAL UPPER SIDE RAILS UP AND LOCKED. CALL LIGHT WITHIN EASY REACH
[2018-08-08] MEDS: hydrALAZINE HCL 25 MG TABLET PO PRN (19:46)
--- NOTE | 2018-08-08 19:46 | NUR ---
MS RN NOTE - Hydralazine for BP MANAGER OF INTERNAL AUDIT alerted me to elevated BP of 174/85 on the left arm and 188/88 on the right arm. MANAGER OF INTERNAL AUDIT stated that she took the BP twice in each arm. PO hydralazine 25mg was administered per prn orders for SBP greater than 150. Will continue to monitor and reassess.
[2018-08-08 20:00] VITALS: BP_SYST 168; BP_SYST 188; BP_DIAS 81; BP_DIAS 88
[2018-08-08 21:00] VITALS: BP 168/81
--- NOTE | 2018-08-08 21:00 | NUR ---
MS RN NOTE - BP check Patient's BP was rechecked approximately one hour after giving hydralazine (see previous notes). BP on right arm before hydralazine was 188/88. Now BP on right arm is 168/81. Since admission (08/05) the patient's BP has consistently been above 150/80 and often in the 160s systolic. Patient remains asymptomatic. Will continue to monitor.
--- NOTE | 2018-08-09 02:04 | NUR ---
MS RN NOTE - Nausea/Zofran Patient awoke from sleep and reported feeling nauseous as if he were going to vomit. 4mg IV Zofran was administered. Will continue to monitor.
--- NOTE | 2018-08-09 07:27 | NUR ---
MS RN CLOSING NOTE Patient remains AAOx4, breathing comfortably on RA with no SOB, and no signs of acute distress. Nephrostomy on left side drained 100mL of bloody urine. Nephrostomy on right side drained 500ml of clear, yellow urine. Patient has been NPO since midnight for nephrostomy replacement scheduled today (08/09/18). IV in left FA is intact, patent, with no signs of leaking or infiltration. 1/2 NS with 20 mEq of KCl is running at 70ml/hr. Bed is low/locked, two side rails up, and call lindo within reach. Patient care endorsed to day shift nurse.
[2018-08-09] MEDS: IV PREMIX 0.45% NS + KCL 1,000 ML IV PRN ×2 (07:30→21:50)
[2018-08-09 07:34] LABS: CALCIUM, SERUM 9.7 mg/dL (8.5-10.1); CARBON DIOXIDE 26 mmol/L (21-32); CHLORIDE 106 mmol/L (98-107); CREATININE 1.7 mg/dL (0.6-1.3); GLUCOSE 72 mg/dL (74-106); SODIUM SERUM 142 mmol/L (136-145); UREA NITROGEN, BLOOD 17 mg/dL (7-18)
[2018-08-09 07:38] LABS: POTASSIUM 2.8 mmol/L (3.5-5.1)
[2018-08-09 08:00] VITALS: BP 160/73
[2018-08-09] MEDS: PANTOPRAZOLE 40 MG TABLET.DR PO SCH (08:42)
[2018-08-09] MEDS: CHOLECALCIFEROL 1,000 UNIT TABLET (VIT D3) PO SCH (08:42)
[2018-08-09] MEDS: predniSONE 1 MG TABLET PO SCH (08:42)
[2018-08-09] MEDS: LINEZOLID 600 MG TABLET PO SCH ×2 (08:42→21:49)
[2018-08-09] MEDS: CALCITRIOL 0.25 MCG CAPSULE PO SCH (08:43)
[2018-08-09] MEDS: ABIRATERONE ACETATE PO SCH (08:43)
[2018-08-09] MEDS: AMLODIPINE BESYLATE 5 MG TABLET PO SCH (08:43)
[2018-08-09] MEDS: CLOTRIMAZOLE/BETAMETASONE DIPROPIONATE 15 GM TUBE TP SCH ×2 (08:45→18:03)
[2018-08-09] MEDS ORDERED: POTASSIUM CHLORIDE 20 MEQ TAB.PRT.SR PO SCH (10:00)
[2018-08-09] MEDS: POTASSIUM CL. PREMIX PERIPHER. 50 ML IV SCH ×4 (10:41→14:14)
[2018-08-09] MEDS ORDERED: LIDOCAINE HCL/PF 1% 30 ML SDV ONE (11:06)
[2018-08-09] MEDS ORDERED: IOHEXOL-300 100 ML VIAL IV ONE (11:49)
[2018-08-09] MEDS ORDERED: NALOXONE PREFILLED SYRINGE 2 MG/2 ML SYRINGE IV ONE (12:00)
[2018-08-09] MEDS ORDERED: FENTANYL PF 250MCG/5ML AMPUL IV ONE (12:00)
[2018-08-09] MEDS ORDERED: MIDAZOLAM HCL 5MG/ML VIAL 25 MG/5 ML VIAL IV ONE (12:00)
--- NOTE | 2018-08-09 15:00 | NUR ---
PATIENT AAOX3 FOLLOW COMMANDS ROOM AIR NO SOB NON LABORED BREATHING ABDOMEN SOFT NON TENDER PT DENIED CHES PAIN ANY PAIN PT LT NEPHROSTOMY BAG CHANGED BY RADIOLOGY MD URINE COLOR HEMATURIA OBSERVED NPO REMOVED WILL CONTINUE MONITOR Addendum: 08/09/18 at 1510 by GILMAR ACEVES RN TAYE Arreguin;2.8 POTASSIUM 40MEQ IVPB GIVEN PER MAR
[2018-08-09 16:00] VITALS: BP 164/80
--- NOTE | 2018-08-09 16:00 | NUR ---
m/s care attendant: notes received pt in bed sounds asleep with s/p ct and ultrasound guided left-sided nephrostomy procedure with findings: Successful removal of existing left nephrostomy and placement of a new percutaneous left -sided nephrostomy. No evidence of immediate complication. kcl chloride 10meq ivpb completed with no a/r noted. call light within reach. no apparent distress noted. will continue to monitor.
--- NOTE | 2018-08-09 18:00 | NUR ---
m/s chain offbearer: notes having dinner at this time with hob elevated at 90 degree. no c/o pain or any discomfort. instructed to call for assistance. will continue to monitor.
--- NOTE | 2018-08-09 18:30 | NUR ---
m/s trademark affixer: notes right sided nephrostomy tube emptied with 125ml of yellow drainage output and left sided nephrostomy tube emptied with 175ml of sanguineous drainage output. incontinent care rendered by medical technologist chemistry. needs attended. will continue to monitor.
--- NOTE | 2018-08-09 19:00 | NUR ---
m/s farm mechanic apprentice: notes bedside report given to piedad (rn) for continuity of care.
--- NOTE | 2018-08-09 19:50 | NUR ---
MS RN NOTE: PATIENT RESTING IN BED, NO ACUTE DISTRESS NOTED. BREATHING EVEN AND UNLABORED, NO SOB NOTED. IV TO RIGHT WRIST IN PLACE, INFUSING 1/2NS WITH 20MEQ KCL AT 70 ML/HR. NEPHROSTOMY IN PLACE, LEFT SIDE DRAINING BLOODY URINE AND RIGHT SIDE DRAINING CLEAR YELLOW, MD AWARE. ISOLATION PRECAUTIONS OBSERVED. BED LOCKED AND IN LOWEST POSITION, CALL LIGHT IN REACH. WILL CONTINUE TO MONITOR.
[2018-08-09 20:00] VITALS: BP 156/74
[2018-08-09] MEDS ORDERED: FEE PK DOSING 1 MIN EA MC ONE (20:38)
[2018-08-09] MEDS ORDERED: TOBRAMYCIN 80 MG in IV D5W 50 ML IV SCH (21:00)
[2018-08-09] MEDS: hydrALAZINE HCL 25 MG TABLET PO PRN (21:50)
--- NOTE | 2018-08-09 22:00 | NUR ---
MS RN NOTE: PATIENT BLOOD PRESSURE 156/78, HR 68, PATIENT GIVEN HYDRALAZINE 25MG ORAL PER MD ORDER IF SBP OVER 150. WILL CONTINUE TO MONITOR.
[2018-08-09 23:00] VITALS: BP 138/60
--- NOTE | 2018-08-09 23:00 | NUR ---
MS RN NOTE: PATIENT BLOOD PRESSURE RECHECKED, 138/60, HR 56. WILL CONTINUE TO MONITOR.
--- NOTE | 2018-08-10 06:30 | NUR ---
MS RN NOTE: PATIENT RESTING IN BED, NO ACUTE DISTRESS NOTED. BREATHING EVEN AND UNLABORED, NO SOB NOTED. IV TO RIGHT WRIST IN PLACE, INFUSING 1/2NS WITH 20MEQ KCL AT 70 ML/HR. NEPHROSTOMY IN PLACE, LEFT SIDE DRAINED 150ML BLOODY URINE AND RIGHT SIDE DRAINED 225ML CLEAR YELLOW AWARE. ISOLATION PRECAUTIONS OBSERVED. BED LOCKED AND IN LOWEST POSITION, CALL LIGHT IN REACH. WILL ENDORSE TO DAY NURSE TO CONTINUE WITH PLAN OF CARE.
[2018-08-10] MEDS: ABIRATERONE ACETATE PO SCH (06:56)
--- NOTE | 2018-08-10 07:00 | NUR ---
ms rn received on bed, awake,alert,oriented x3,not in any form of distress, respirations even and unlabored,no sob noted, noted to have nephrostomy tubes, left noted to have a bloody output, and right tube w/ yellowish clear output.denies pain at this time, will monitor patient's condition.
[2018-08-10] MEDS: PANTOPRAZOLE 40 MG TABLET.DR PO SCH (07:30)
[2018-08-10 07:47] LABS: BASOPHILS % (AUTO) 0.2 % (0.0-2.0); EOSINOPHILS % (AUTO) 1.3 % (0.0-6.0); HEMATOCRIT 31 % (39-51); HEMOGLOBIN 10.2 g/dL (13.5-17.5); LYMPHOCYTES % (AUTO) 9.2 % (20.0-44.0); MEAN CORPUSCULAR HGB CONC 33 g/dl (31.0-36.0); MEAN CORPUSCULAR VOLUME 97 fL (80-96); MONOCYTES # (AUTO) 0.7 /CMM (0.1-1.30); MONOCYTES % (AUTO) 6.7 % (2.0-12.0); NEUTROPHILS # (AUTO) 8.8 /CMM (1.8-8.9); NEUTROPHILS % (AUTO) 82.6 % (43.0-81.0); PLATELET COUNT (AUTO) 185 /CMM (150-450); RDW COEFFICIENT OF VARIATION 14.3 (11.5-15.0); RED BLOOD CELL COUNT(AUTO) 3.22 MIL/uL (4.5-6.0); WHITE BLOOD COUNT (AUTO) 10.7 K/uL (4.3-11.0)
[2018-08-10 08:04] LABS: ALANINE AMINOTRANSFERASE 11 U/L (12-78); ALBUMIN 2.7 g/dL (3.4-5.0); ALKALINE PHOSPHATASE 157 U/L (46-116); ASPARTATE AMINOTRANSFERASE 41 U/L (15-37); BILIRUBIN,TOTAL 0.4 mg/dL (0.2-1.0); CARBON DIOXIDE 25 mmol/L (21-32); CHLORIDE 105 mmol/L (98-107); CREATININE 1.7 mg/dL (0.6-1.3); GLUCOSE 71 mg/dL (74-106); MAGNESIUM 1.8 mg/dL (1.8-2.4); POTASSIUM 3.7 mmol/L (3.5-5.1); SODIUM SERUM 142 mmol/L (136-145); TOTAL PROTEIN, SERUM 6.2 g/dL (6.4-8.2); UREA NITROGEN, BLOOD 18 mg/dL (7-18)
[2018-08-10 08:23] VITALS: BP 170/75
[2018-08-10] MEDS: CALCITRIOL 0.25 MCG CAPSULE PO SCH (09:00)
[2018-08-10] MEDS: CHOLECALCIFEROL 1,000 UNIT TABLET (VIT D3) PO SCH (09:00)
[2018-08-10] MEDS: predniSONE 1 MG TABLET PO SCH (09:00)
--- NOTE | 2018-08-10 09:00 | NUR ---
ms mcgee breakfast served,due meds given,tolerated well.
[2018-08-10] MEDS: LINEZOLID 600 MG TABLET PO SCH (09:34)
[2018-08-10 09:35] VITALS: BP 170/75
[2018-08-10] MEDS: AMLODIPINE BESYLATE 5 MG TABLET PO SCH (09:35)
[2018-08-10] MEDS: CLOTRIMAZOLE/BETAMETASONE DIPROPIONATE 15 GM TUBE TP SCH (09:38)
--- NOTE | 2018-08-10 11:00 | NUR ---
ms arely was seen by dr. trinity ortiz/ orders made nd carried out.
--- NOTE | 2018-08-10 15:48 | NUR ---
ms rn on bed, no distress noted.
--- NOTE | 2018-08-10 16:36 | NUR ---
ms rn patient was transferred to board and care w/ orders, bilateral nephrostomy tubes intact left tube has 150ml output, bloody and right has 200ml output clear yellowish, denies pain, all needs attended.
== END 2018-08-10 16:30 | disposition home or self-care (01) | DRG 722 ==
LOC: ER 18:01 → MED 21:04 → TELE 21:14 → MED 08-06 15:38
PROVIDERS: ADMIT Internal Medicine; ATTEND Internal Medicine
PROC: 0T25X0Z Change Drainage Device in Kidney, External Approach (ICD-10-PCS; principal; 2018-08-09)
DX: C61 Malignant neoplasm of prostate (principal); N17.0 Acute kidney failure with tubular necrosis; I21.4 Non-ST elevation (NSTEMI) myocardial infarction; E43 Unspecified severe protein-calorie malnutrition; C79.51 Secondary malignant neoplasm of bone; I13.0 Hypertensive heart and chronic kidney disease with heart failure and stage 1 through stage 4 chronic kidney disease, or unspecified chronic kidney disease; D68.59 Other primary thrombophilia; C79.11 Secondary malignant neoplasm of bladder; N13.30 Unspecified hydronephrosis; R64 Cachexia; N18.2 Chronic kidney disease, stage 2 (mild); R31.0 Gross hematuria; J44.9 Chronic obstructive pulmonary disease, unspecified; Z87.891 Personal history of nicotine dependence; R00.1 Bradycardia, unspecified; I50.9 Heart failure, unspecified; Z93.6 Other artificial openings of urinary tract status; C67.9 Malignant neoplasm of bladder, unspecified; E78.5 Hyperlipidemia, unspecified; F12.11 Cannabis abuse, in remission; F14.11 Cocaine abuse, in remission; E87.6 Hypokalemia; D64.9 Anemia, unspecified
CPT/HCPCS: 36415; 71045-TC; 75989; 75989-TC; 76770-TC; 80048-TC; 80053-TC; 80076-TC; 81000-TC; 82272-TC; 83540-TC; 83735-TC; 83880; 84100-TC; 84484-TC; 85025-TC; 85730-TC; 87081-TC; 87086-TC; 87186-TC; 93307-TC; 97110-TC; 97112-TC; 97116-TC; 97530-TC; A4215; A4606; A6402; J2250; J2270; J2310; J2405; J2543; J3010; J3260; J3370; J3480; J3490; J7050; J7060; J7512; Q9967; Z7610

== ENCOUNTER 2018-08-15 19:48 | Inpatient (IN) | payer MEDICARE, OTHER ==
[~2018-08-15] VITALS: Ht 175.3 cm; Wt 52.2 kg
[~2018-08-15 19:48] MED LIST changes: -CEFT1PIG2 IV; -RXTOB XX; -VANC500V PO
[2018-08-15] MEDS ORDERED: IV NS 0.9% 500 ML BAG IV ONE (20:00)
[2018-08-15] MEDS ORDERED: ACETAMINOPHEN 650 MG/SUPP.RECT RC ONE ×2 (20:13→20:30)
[2018-08-15 20:57] LABS: LYMPHOCYTES # (AUTO) 0.7 /CMM (0.8-4.8); MONOCYTES # (AUTO) 1.1 /CMM (0.1-1.30)
[2018-08-15 21:01] LABS: BASOPHILS # (AUTO) 0.5 /CMM (0.0-0.2); BASOPHILS % (AUTO) 2.1 % (0.0-2.0); HEMATOCRIT 33 % (39-51); HEMOGLOBIN 11.4 g/dL (13.5-17.5); LYMPHOCYTES % (AUTO) 2.9 % (20.0-44.0); MEAN CORPUSCULAR HGB CONC 35 g/dl (31.0-36.0); MEAN CORPUSCULAR VOLUME 93 fL (80-96); MONOCYTES % (AUTO) 4.9 % (2.0-12.0); NEUTROPHILS # (AUTO) 21.1 /CMM (1.8-8.9); NEUTROPHILS % (AUTO) 90.1 % (43.0-81.0); PLATELET COUNT (AUTO) 246 /CMM (150-450); RDW COEFFICIENT OF VARIATION 13.3 (11.5-15.0); RED BLOOD CELL COUNT(AUTO) 3.49 MIL/uL (4.5-6.0); WHITE BLOOD COUNT (AUTO) 23.4 K/uL (4.3-11.0)
[2018-08-15 21:04] LABS: CALCIUM, SERUM 9.5 mg/dL (8.5-10.1); CARBON DIOXIDE 30 mmol/L (21-32); CHLORIDE 104 mmol/L (98-107); CREATININE 1.9 mg/dL (0.6-1.3); GLUCOSE 105 mg/dL (74-106); SODIUM SERUM 142 mmol/L (136-145); UREA NITROGEN, BLOOD 29 mg/dL (7-18)
[2018-08-15 21:09] LABS: INR 1.03 (0.85-1.15)
[2018-08-15 21:11] LABS: TROPONIN I 0.076 ng/mL (0.00-0.056)
[2018-08-15 21:12] LABS: APPEARANCE,URINE Turbid (CLEAR); BILIRUBIN,URINE SMALL (NEGATIVE); BLOOD, URINE Large Ery/uL (NEGATIVE); COLOR,URINE Amber (YELLOW); KETONES,URINE Negative (NEGATIVE); LEUKOCYTE ESTERASE ,URINE Large (NEGATIVE); NITRITE, URINE Positive (NEGATIVE); PH,URINE 5.5 (5.0-8.0); PROTEIN,URINE >=300 mg/dl (NEGATIVE); UGLUCOSE Negative (NEGATIVE)
[2018-08-15 21:16] LABS: ALANINE AMINOTRANSFERASE 14 U/L (12-78); ALBUMIN 2.7 g/dL (3.4-5.0); ALKALINE PHOSPHATASE 173 U/L (46-116); ASPARTATE AMINOTRANSFERASE 32 U/L (15-37); B-TYPE NATRIURETIC PEPTIDE 5586 PG/ML (0-125); BILIRUBIN,DIRECT 0.1 mg/dL (0.0-0.2); BILIRUBIN,TOTAL 0.3 mg/dL (0.2-1.0); TOTAL PROTEIN, SERUM 6.5 g/dL (6.4-8.2)
[2018-08-15 21:19] LABS: BACTERIA,URINE Many /HPF (None Seen); RBC,URINE TOO NUMEROUS TO COUN /HPF (0-2)
[2018-08-15 21:21] LABS: SQUAMOUS EPITHELIAL CELL,UR Few /HPF (None Seen)
[2018-08-15] MEDS ORDERED: CEFTRIAXONE 1 G VIAL ONE (21:28)
[2018-08-15] MEDS ORDERED: CEFTRIAXONE 1GM BAG (ER ONLY) 50 ML IV ONE (21:30)
[2018-08-15] MEDS ORDERED: IV NS 0.9% 1,000 ML BAG IV ONE (21:30)
[2018-08-15 21:39] LABS: LYMPHOCYTES % (MANUAL) 2 % (16-48); MONOCYTES % (MANUAL) 4 % (0-11.0); NEUTROPHILS % (MANUAL) 94 (42-76)
[2018-08-15] MEDS ORDERED: LINEZOLID RTU BAG 600 MG in PREMIX 1 EA IV SCH (22:00)
[2018-08-15] MEDS ORDERED: ONDANSETRON HCL/PF 4 MG/2 ML VIAL IVP PRN (22:00)
[2018-08-15] MEDS ORDERED: MAGNESIUM HYDROXIDE 30 ML UDC PO PRN (22:00)
[2018-08-15] MEDS ORDERED: Z GUARD REMEDY 2 OZ OINT TP PRN (22:00)
[2018-08-15] MEDS ORDERED: ZOLPIDEM TARTRATE 5 MG TABLET PO PRN (22:00)
[2018-08-15] MEDS ORDERED: MAG HYDROX/AL HYDROX/SIMETH 30 ML UDC PO PRN (22:00)
[2018-08-15] MEDS ORDERED: LINEZOLID RTU BAG 300 ML IV ONE (22:24)
[2018-08-15] MEDS ORDERED: COLISTIMETHATE SODIUM 100 MG in IV NS 0.9% 50 ML IV SCH (23:00)
[2018-08-15 23:32] VITALS: BP 165/74
[2018-08-16] VITALS: BP 116/77
[2018-08-16] MEDS: IV NS 0.9% 1,000 ML IV PRN ×2 (00:26→17:43)
[2018-08-16] MEDS ORDERED: COLISTIMETHATE SODIUM 150 MG VIAL ONE (00:47)
[2018-08-16 04:00] VITALS: BP 107/59
[2018-08-16 05:47] LABS: BASOPHILS % (AUTO) 0.2 % (0.0-2.0); HEMATOCRIT 33 % (39-51); HEMOGLOBIN 10.6 g/dL (13.5-17.5); LYMPHOCYTES # (AUTO) 1.1 /CMM (0.8-4.8); LYMPHOCYTES % (AUTO) 5.7 % (20.0-44.0); MEAN CORPUSCULAR HGB CONC 33 g/dl (31.0-36.0); MEAN CORPUSCULAR VOLUME 97 fL (80-96); MONOCYTES # (AUTO) 1.2 /CMM (0.1-1.30); MONOCYTES % (AUTO) 5.8 % (2.0-12.0); NEUTROPHILS # (AUTO) 17.6 /CMM (1.8-8.9); NEUTROPHILS % (AUTO) 88.3 % (43.0-81.0); PLATELET COUNT (AUTO) 208 /CMM (150-450); RDW COEFFICIENT OF VARIATION 14.7 (11.5-15.0); RED BLOOD CELL COUNT(AUTO) 3.38 MIL/uL (4.5-6.0); WHITE BLOOD COUNT (AUTO) 19.9 K/uL (4.3-11.0)
[2018-08-16 06:04] LABS: ALANINE AMINOTRANSFERASE 10 U/L (12-78); ALBUMIN 2.3 g/dL (3.4-5.0); ALKALINE PHOSPHATASE 146 U/L (46-116); ASPARTATE AMINOTRANSFERASE 35 U/L (15-37); BILIRUBIN,TOTAL 0.3 mg/dL (0.2-1.0); CALCIUM, SERUM 8.8 mg/dL (8.5-10.1); CARBON DIOXIDE 25 mmol/L (21-32); CHLORIDE 107 mmol/L (98-107); CREATININE 1.9 mg/dL (0.6-1.3); GLUCOSE 100 mg/dL (74-106); MAGNESIUM 1.5 mg/dL (1.8-2.4); PHOSPHORUS 3.2 mg/dL (2.5-4.9); SODIUM SERUM 144 mmol/L (136-145); TOTAL PROTEIN, SERUM 5.8 g/dL (6.4-8.2); UREA NITROGEN, BLOOD 26 mg/dL (7-18)
[2018-08-16 06:15] LABS: CHOLESTEROL 121 mg/dL (<200); HDL CHOLESTEROL 31 mg/dL (40-60); LDL 63 mg/dL (0-99); THYROID STIMULATING HORMONE 1.455 uIU/mL (0.358-3.74); TRIGLYCERIDES 221 mg/dL (30-150)
[2018-08-16 06:20] LABS: POTASSIUM 2.6 mmol/L (3.5-5.1)
[2018-08-16 08:00] VITALS: BP 113/65
[2018-08-16] MEDS: POTASSIUM CL. PREMIX PERIPHER. 50 ML IV SCH ×6 (08:43→15:06)
[2018-08-16] MEDS: CLOTRIMAZOLE 1% 15 GM TUBE TP SCH (10:31)
[2018-08-16] MEDS: Magnesium 1GM/D5W 100ML PREMIX 100 ML IV SCH ×2 (11:41→12:52)
[2018-08-16 12:00] VITALS: BP 140/59
[2018-08-16 13:35] LABS: OCCULT BLOOD STOOL POSITIVE (NEGATIVE)
[2018-08-16] MEDS: IPRATROPIUM NEB FS 0.5 MG/2.5 ML AMPUL.NEB NEB SCH ×2 (13:43→19:59)
[2018-08-16] MEDS: ALBUTEROL HALF STRENGTH 1.25 MG/3 ML VIAL.NEB NEB SCH ×2 (13:43→19:59)
[2018-08-16] MEDS: LINEZOLID RTU BAG 600 MG in PREMIX 1 EA IV SCH (15:43)
[2018-08-16 16:00] VITALS: BP 144/56
[2018-08-16 20:00] VITALS: BP 110/59
[2018-08-16] MEDS ORDERED: IV D5/ 0.9% NACL 1,000 ML IV PRN (23:00)
[2018-08-17] VITALS (7 sets, daily range): BP systolic 131–157; BP diastolic 41–74
[2018-08-17] MEDS: IPRATROPIUM NEB FS 0.5 MG/2.5 ML AMPUL.NEB NEB SCH ×5 (01:02→19:30)
[2018-08-17] MEDS: ALBUTEROL HALF STRENGTH 1.25 MG/3 ML VIAL.NEB NEB SCH ×5 (01:02→19:30)
[2018-08-17] MEDS: LINEZOLID RTU BAG 600 MG in PREMIX 1 EA IV SCH ×2 (01:18→14:47)
[2018-08-17 06:34] LABS: EOSINOPHILS % (AUTO) 1.2 % (0.0-6.0); HEMATOCRIT 24 % (39-51); HEMOGLOBIN 7.9 g/dL (13.5-17.5); LYMPHOCYTES # (AUTO) 0.8 /CMM (0.8-4.8); LYMPHOCYTES % (AUTO) 6.6 % (20.0-44.0); MEAN CORPUSCULAR HGB CONC 33 g/dl (31.0-36.0); MEAN CORPUSCULAR VOLUME 96 fL (80-96); MONOCYTES # (AUTO) 0.8 /CMM (0.1-1.30); MONOCYTES % (AUTO) 6.2 % (2.0-12.0); NEUTROPHILS # (AUTO) 10.5 /CMM (1.8-8.9); PLATELET COUNT (AUTO) 186 /CMM (150-450); RDW COEFFICIENT OF VARIATION 14.3 (11.5-15.0); RED BLOOD CELL COUNT(AUTO) 2.51 MIL/uL (4.5-6.0); WHITE BLOOD COUNT (AUTO) 12.2 K/uL (4.3-11.0)
[2018-08-17 06:36] LABS: CALCIUM, SERUM 9.1 mg/dL (8.5-10.1); CARBON DIOXIDE 26 mmol/L (21-32); CHLORIDE 110 mmol/L (98-107); CREATININE 1.5 mg/dL (0.6-1.3); GLUCOSE 99 mg/dL (74-106); PHOSPHORUS 2.7 mg/dL (2.5-4.9); SODIUM SERUM 144 mmol/L (136-145); UREA NITROGEN, BLOOD 23 mg/dL (7-18)
[2018-08-17 06:38] LABS: POTASSIUM 2.5 mmol/L (3.5-5.1)
[2018-08-17] MEDS: CLOTRIMAZOLE 1% 15 GM TUBE TP SCH ×2 (08:34→16:51)
[2018-08-17] MEDS ORDERED: ASPIRIN 81 MG TAB.CHEW PO SCH (09:00)
[2018-08-17] MEDS ORDERED: ATORVASTATIN 10 MG TABLET PO SCH (09:00)
[2018-08-17] MEDS ORDERED: AMLODIPINE BESYLATE 2.5 MG TABLET PO SCH (09:00)
[2018-08-17] MEDS ORDERED: ACETAMINOPHEN 325 MG TABLET PO PRN (09:00)
[2018-08-17] MEDS ORDERED: AMIODARONE HCL 200 MG TABLET PO SCH (09:00)
[2018-08-17] MEDS: CALCITRIOL 0.25 MCG CAPSULE PO SCH (09:27)
[2018-08-17] MEDS ORDERED: ONDANSETRON 4 MG TAB.RAPDIS PO PRN (09:30)
[2018-08-17] MEDS: POTASSIUM CL. PREMIX PERIPHER. 50 ML IV SCH ×6 (09:31→15:46)
[2018-08-17] MEDS: Potassium Chloride 40 MEQ in IV D5/0.45 NACL 1,000 ML IV PRN (09:47)
[2018-08-17] MEDS: PANTOPRAZOLE 40 MG TABLET.DR PO SCH (10:06)
[2018-08-17] MEDS: predniSONE 1 MG TABLET PO SCH (10:06)
[2018-08-17] MEDS: COLISTIMETHATE SODIUM 100 MG in IV NS 0.9% 50 ML IV SCH (11:34)
[2018-08-17] MEDS: ZYTIGA 250 MG PO SCH (16:46)
[2018-08-17] MEDS ORDERED: POLYVINYL ALCOHOL 15 ML BOTTLE EACHEYE PRN (19:00)
[2018-08-18] VITALS: BP 142/75
[2018-08-18] MEDS: LINEZOLID RTU BAG 600 MG in PREMIX 1 EA IV SCH ×2 (01:25→14:31)
[2018-08-18] MEDS: ALBUTEROL HALF STRENGTH 1.25 MG/3 ML VIAL.NEB NEB SCH ×4 (01:26→19:20)
[2018-08-18] MEDS: IPRATROPIUM NEB FS 0.5 MG/2.5 ML AMPUL.NEB NEB SCH ×4 (01:26→19:20)
[2018-08-18 04:00] VITALS: BP 142/78
[2018-08-18] MEDS: Potassium Chloride 40 MEQ in IV D5/0.45 NACL 1,000 ML IV PRN (05:57)
[2018-08-18] MEDS: ZYTIGA 250 MG PO SCH (06:31)
[2018-08-18 06:55] LABS: CALCIUM, SERUM 9.1 mg/dL (8.5-10.1); CARBON DIOXIDE 25 mmol/L (21-32); CHLORIDE 108 mmol/L (98-107); CREATININE 1.3 mg/dL (0.6-1.3); GLUCOSE 86 mg/dL (74-106); MAGNESIUM 1.8 mg/dL (1.8-2.4); PHOSPHORUS 2.2 mg/dL (2.5-4.9); POTASSIUM 3.2 mmol/L (3.5-5.1); SODIUM SERUM 141 mmol/L (136-145); UREA NITROGEN, BLOOD 20 mg/dL (7-18)
[2018-08-18 07:16] LABS: EOSINOPHILS % (AUTO) 4.4 % (0.0-6.0); HEMATOCRIT 26 % (39-51); HEMOGLOBIN 8.3 g/dL (13.5-17.5); LYMPHOCYTES # (AUTO) 0.8 /CMM (0.8-4.8); LYMPHOCYTES % (AUTO) 6.5 % (20.0-44.0); MEAN CORPUSCULAR HGB CONC 32 g/dl (31.0-36.0); MEAN CORPUSCULAR VOLUME 96 fL (80-96); MONOCYTES # (AUTO) 0.8 /CMM (0.1-1.30); MONOCYTES % (AUTO) 6.3 % (2.0-12.0); NEUTROPHILS # (AUTO) 10.3 /CMM (1.8-8.9); NEUTROPHILS % (AUTO) 82.8 % (43.0-81.0); PLATELET COUNT (AUTO) 147 /CMM (150-450); RDW COEFFICIENT OF VARIATION 14.4 (11.5-15.0); RED BLOOD CELL COUNT(AUTO) 2.66 MIL/uL (4.5-6.0); WHITE BLOOD COUNT (AUTO) 12.4 K/uL (4.3-11.0)
[2018-08-18 08:14] VITALS: BP 173/79
[2018-08-18] MEDS: PANTOPRAZOLE 40 MG TABLET.DR PO SCH (08:51)
[2018-08-18] MEDS: predniSONE 1 MG TABLET PO SCH (08:51)
[2018-08-18] MEDS: CALCITRIOL 0.25 MCG CAPSULE PO SCH (08:51)
[2018-08-18] MEDS: CLOTRIMAZOLE 1% 15 GM TUBE TP SCH ×2 (08:52→16:36)
[2018-08-18] MEDS ORDERED: POTASSIUM CHLORIDE 20 MEQ TAB.PRT.SR PO ONE (12:30)
[2018-08-18 12:38] VITALS: BP 166/71
[2018-08-18] MEDS: ACIDOPHILUS/BULGARICUS 1 EACH TAB.CHEW PO SCH ×2 (13:23→16:30)
[2018-08-18] MEDS: ENSURE ENLIVE CHOC 237 ML CAN PO SCH ×2 (13:43→16:36)
[2018-08-18 16:00] VITALS: BP 132/67
[2018-08-18] MEDS ORDERED: NEUTRA PHOS 1 POWD.PACKET PO ONE (16:00)
[2018-08-18] MEDS: VANCOMYCIN HCL 125 MG/2.5 ML ORAL.SUSP PO SCH ×2 (17:44→23:54)
[2018-08-18 20:00] VITALS: BP 165/71
[2018-08-18] MEDS: COLISTIMETHATE SODIUM 100 MG in IV NS 0.9% 50 ML IV SCH (22:33)
[2018-08-19] VITALS: BP 130/90
[2018-08-19] MEDS: HYDROCODONE/APAP 5/325MG 1 EACH TABLET PO PRN (00:45)
[2018-08-19] MEDS: IPRATROPIUM NEB FS 0.5 MG/2.5 ML AMPUL.NEB NEB SCH ×4 (01:05→19:30)
[2018-08-19] MEDS: ALBUTEROL HALF STRENGTH 1.25 MG/3 ML VIAL.NEB NEB SCH ×4 (01:05→19:30)
[2018-08-19] MEDS ORDERED: IV PREMIX D5 1/2NS + KCL 1,000 ML IV ONE (04:09)
[2018-08-19] MEDS: Potassium Chloride 40 MEQ in IV D5/0.45 NACL 1,000 ML IV PRN ×2 (04:14→22:16)
[2018-08-19] MEDS: VANCOMYCIN HCL 125 MG/2.5 ML ORAL.SUSP PO SCH ×4 (05:32→23:24)
[2018-08-19 06:33] VITALS: BP 168/60
[2018-08-19 06:42] LABS: BASOPHILS % (AUTO) 0.1 % (0.0-2.0); EOSINOPHILS % (AUTO) 3.8 % (0.0-6.0); HEMATOCRIT 25 % (39-51); HEMOGLOBIN 8.2 g/dL (13.5-17.5); LYMPHOCYTES # (AUTO) 1.1 /CMM (0.8-4.8); LYMPHOCYTES % (AUTO) 8.9 % (20.0-44.0); MEAN CORPUSCULAR HGB CONC 33 g/dl (31.0-36.0); MEAN CORPUSCULAR VOLUME 96 fL (80-96); MONOCYTES # (AUTO) 0.8 /CMM (0.1-1.30); MONOCYTES % (AUTO) 6.4 % (2.0-12.0); NEUTROPHILS # (AUTO) 10.1 /CMM (1.8-8.9); NEUTROPHILS % (AUTO) 80.8 % (43.0-81.0); PLATELET COUNT (AUTO) 164 /CMM (150-450); RDW COEFFICIENT OF VARIATION 14.6 (11.5-15.0); RED BLOOD CELL COUNT(AUTO) 2.59 MIL/uL (4.5-6.0); WHITE BLOOD COUNT (AUTO) 12.5 K/uL (4.3-11.0)
[2018-08-19 07:01] LABS: CALCIUM, SERUM 9.3 mg/dL (8.5-10.1); CARBON DIOXIDE 24 mmol/L (21-32); CHLORIDE 107 mmol/L (98-107); CREATININE 1.4 mg/dL (0.6-1.3); GLUCOSE 69 mg/dL (74-106); MAGNESIUM 1.5 mg/dL (1.8-2.4); PHOSPHORUS 2.5 mg/dL (2.5-4.9); POTASSIUM 4.1 mmol/L (3.5-5.1); SODIUM SERUM 141 mmol/L (136-145); UREA NITROGEN, BLOOD 19 mg/dL (7-18)
[2018-08-19] MEDS: ZYTIGA 250 MG PO SCH (07:30)
[2018-08-19 08:00] VITALS: BP 171/60
[2018-08-19] MEDS: PANTOPRAZOLE 40 MG TABLET.DR PO SCH (08:37)
[2018-08-19] MEDS: CALCITRIOL 0.25 MCG CAPSULE PO SCH (08:37)
[2018-08-19] MEDS: predniSONE 1 MG TABLET PO SCH (08:37)
[2018-08-19] MEDS: ACIDOPHILUS/BULGARICUS 1 EACH TAB.CHEW PO SCH ×3 (08:37→17:31)
[2018-08-19] MEDS: ENSURE ENLIVE CHOC 237 ML CAN PO SCH ×3 (08:38→17:31)
[2018-08-19] MEDS: CLOTRIMAZOLE 1% 15 GM TUBE TP SCH ×2 (09:00→17:32)
[2018-08-19 12:00] VITALS: BP 171/60
[2018-08-19] MEDS ORDERED: ACID1TAB12 PO (12:45)
[2018-08-19] MEDS ORDERED: CLOT15CR35 TP (12:45)
[2018-08-19] MEDS ORDERED: Polyvinyl Alcohol EACHEYE (12:45)
[2018-08-19] MEDS ORDERED: VANC125C11 PO (12:45)
[2018-08-19 16:00] VITALS: BP 149/63
[2018-08-19 20:00] VITALS: BP 161/75
[2018-08-20] MEDS: IPRATROPIUM NEB FS 0.5 MG/2.5 ML AMPUL.NEB NEB SCH ×4 (02:33→19:30)
[2018-08-20] MEDS: ALBUTEROL HALF STRENGTH 1.25 MG/3 ML VIAL.NEB NEB SCH ×4 (02:33→19:30)
[2018-08-20 04:00] VITALS: BP_SYST 165; BP_DIAS 75; BP_DIAS 86
[2018-08-20] MEDS: VANCOMYCIN HCL 125 MG/2.5 ML ORAL.SUSP PO SCH ×4 (05:05→23:35)
[2018-08-20] MEDS: HYDROCODONE/APAP 5/325MG 1 EACH TABLET PO PRN (05:06)
[2018-08-20 08:00] VITALS: BP 155/61
[2018-08-20] MEDS: PANTOPRAZOLE 40 MG TABLET.DR PO SCH (08:46)
[2018-08-20] MEDS: CLOTRIMAZOLE 1% 15 GM TUBE TP SCH ×2 (08:46→16:58)
[2018-08-20] MEDS: CALCITRIOL 0.25 MCG CAPSULE PO SCH (08:46)
[2018-08-20] MEDS: predniSONE 1 MG TABLET PO SCH (08:46)
[2018-08-20] MEDS: ACIDOPHILUS/BULGARICUS 1 EACH TAB.CHEW PO SCH ×3 (08:46→16:57)
[2018-08-20] MEDS: ENSURE ENLIVE CHOC 237 ML CAN PO SCH ×3 (08:52→16:58)
[2018-08-20] MEDS: ZYTIGA 250 MG PO SCH (08:52)
[2018-08-20] MEDS: Potassium Chloride 40 MEQ in IV D5/0.45 NACL 1,000 ML IV PRN (12:12)
[2018-08-20] MEDS: COLISTIMETHATE SODIUM 100 MG in IV NS 0.9% 50 ML IV SCH (12:15)
[2018-08-20] MEDS: hydrALAZINE HCL 25 MG TABLET PO SCH ×2 (13:33→21:36)
[2018-08-20] MEDS: AMLODIPINE BESYLATE 2.5 MG TABLET PO SCH (13:34)
[2018-08-20 14:35] LABS: IRON, SERUM 38 ug/dl (50-175); TOTAL IRON BINDING CAPACITY 90 ug/dl (250-450)
[2018-08-20 15:10] LABS: FERRITIN 1286 ng/mL (8-388)
[2018-08-20 16:00] VITALS: BP 135/64
[2018-08-20] MEDS: MEGESTROL ACETATE 40 MG TABLET PO SCH (16:57)
[2018-08-20] MEDS: ACETAMINOPHEN 325 MG TABLET PO PRN (19:55)
[2018-08-20 20:00] VITALS: BP 149/77
[2018-08-21] MEDS: IPRATROPIUM NEB FS 0.5 MG/2.5 ML AMPUL.NEB NEB SCH ×4 (01:30→19:30)
[2018-08-21] MEDS: ALBUTEROL HALF STRENGTH 1.25 MG/3 ML VIAL.NEB NEB SCH ×4 (01:30→19:30)
[2018-08-21 04:00] VITALS: BP 109/67
[2018-08-21] MEDS: hydrALAZINE HCL 25 MG TABLET PO SCH ×3 (05:00→20:35)
[2018-08-21] MEDS: VANCOMYCIN HCL 125 MG/2.5 ML ORAL.SUSP PO SCH ×4 (05:58→23:12)
[2018-08-21 08:00] VITALS: BP 141/62
[2018-08-21] MEDS: CALCITRIOL 0.25 MCG CAPSULE PO SCH (08:29)
[2018-08-21] MEDS: AMLODIPINE BESYLATE 2.5 MG TABLET PO SCH (08:29)
[2018-08-21] MEDS: ACETAMINOPHEN 325 MG TABLET PO PRN ×2 (08:29→23:12)
[2018-08-21] MEDS: predniSONE 1 MG TABLET PO SCH (08:29)
[2018-08-21] MEDS: ACIDOPHILUS/BULGARICUS 1 EACH TAB.CHEW PO SCH ×3 (08:29→16:44)
[2018-08-21] MEDS: PANTOPRAZOLE 40 MG TABLET.DR PO SCH (08:29)
[2018-08-21] MEDS: MEGESTROL ACETATE 40 MG TABLET PO SCH ×2 (08:29→16:44)
[2018-08-21] MEDS: ENSURE ENLIVE CHOC 237 ML CAN PO SCH ×3 (08:32→18:42)
[2018-08-21] MEDS: ZYTIGA 250 MG PO SCH (08:32)
[2018-08-21] MEDS: Potassium Chloride 40 MEQ in IV D5/0.45 NACL 1,000 ML IV PRN ×2 (08:36→21:33)
[2018-08-21] MEDS: CLOTRIMAZOLE 1% 15 GM TUBE TP SCH ×2 (11:37→16:45)
[2018-08-21 16:00] VITALS: BP 124/66
[2018-08-21 20:00] VITALS: BP 141/81
[2018-08-21] MEDS: COLISTIMETHATE SODIUM 100 MG in IV NS 0.9% 50 ML IV SCH (22:28)
[2018-08-22] MEDS: IPRATROPIUM NEB FS 0.5 MG/2.5 ML AMPUL.NEB NEB SCH ×5 (01:30→19:54)
[2018-08-22] MEDS: ALBUTEROL HALF STRENGTH 1.25 MG/3 ML VIAL.NEB NEB SCH ×5 (01:30→19:55)
[2018-08-22 04:00] VITALS: BP 158/69
[2018-08-22] MEDS: hydrALAZINE HCL 25 MG TABLET PO SCH ×3 (04:31→20:25)
[2018-08-22] MEDS: VANCOMYCIN HCL 125 MG/2.5 ML ORAL.SUSP PO SCH ×4 (05:07→23:51)
[2018-08-22 08:00] VITALS: BP_SYST 131; BP_DIAS 62; BP_DIAS 96
[2018-08-22] MEDS: ACIDOPHILUS/BULGARICUS 1 EACH TAB.CHEW PO SCH ×3 (08:30→17:14)
[2018-08-22] MEDS: predniSONE 1 MG TABLET PO SCH (08:30)
[2018-08-22] MEDS: CALCITRIOL 0.25 MCG CAPSULE PO SCH (08:30)
[2018-08-22] MEDS: MEGESTROL ACETATE 40 MG TABLET PO SCH ×2 (08:32→17:14)
[2018-08-22] MEDS: PANTOPRAZOLE 40 MG TABLET.DR PO SCH (08:32)
[2018-08-22] MEDS: CLOTRIMAZOLE 1% 15 GM TUBE TP SCH ×2 (08:32→17:15)
[2018-08-22] MEDS: ZYTIGA 250 MG PO SCH (08:32)
[2018-08-22] MEDS: AMLODIPINE BESYLATE 2.5 MG TABLET PO SCH (08:32)
[2018-08-22] MEDS: ACETAMINOPHEN 325 MG TABLET PO PRN ×2 (08:36→20:25)
[2018-08-22] MEDS: ENSURE ENLIVE CHOC 237 ML CAN PO SCH ×3 (08:38→17:00)
[2018-08-22 12:23] LABS: BASOPHILS % (AUTO) 0.2 % (0.0-2.0); EOSINOPHILS % (AUTO) 1.2 % (0.0-6.0); HEMATOCRIT 25 % (39-51); HEMOGLOBIN 8.1 g/dL (13.5-17.5); LYMPHOCYTES # (AUTO) 1.4 /CMM (0.8-4.8); LYMPHOCYTES % (AUTO) 6.9 % (20.0-44.0); MEAN CORPUSCULAR HGB CONC 32 g/dl (31.0-36.0); MEAN CORPUSCULAR VOLUME 96 fL (80-96); MONOCYTES # (AUTO) 1.5 /CMM (0.1-1.30); MONOCYTES % (AUTO) 7.5 % (2.0-12.0); NEUTROPHILS # (AUTO) 17.2 /CMM (1.8-8.9); NEUTROPHILS % (AUTO) 84.2 % (43.0-81.0); PLATELET COUNT (AUTO) 137 /CMM (150-450); RDW COEFFICIENT OF VARIATION 14.6 (11.5-15.0); RED BLOOD CELL COUNT(AUTO) 2.65 MIL/uL (4.5-6.0); WHITE BLOOD COUNT (AUTO) 20.4 K/uL (4.3-11.0)
[2018-08-22 12:55] LABS: CALCIUM, SERUM 9.8 mg/dL (8.5-10.1); CARBON DIOXIDE 24 mmol/L (21-32); CHLORIDE 102 mmol/L (98-107); GLUCOSE 79 mg/dL (74-106); POTASSIUM 4.7 mmol/L (3.5-5.1); SODIUM SERUM 135 mmol/L (136-145); UREA NITROGEN, BLOOD 20 mg/dL (7-18)
[2018-08-22 16:00] VITALS: BP_SYST 131; BP_SYST 142; BP_DIAS 62; BP_DIAS 66
[2018-08-22] MEDS ORDERED: IV NS 0.9% 1,000 ML BAG IV PRN (18:30)
[2018-08-22] MEDS: MEROPENEM 500 MG in IV NS 0.9% 50 ML IV SCH (18:59)
[2018-08-22] MEDS: IV NS 0.9% 1,000 ML IV PRN (19:00)
[2018-08-22 20:00] VITALS: BP 155/63
[2018-08-23] VITALS: BP 151/86
[2018-08-23] MEDS: ALBUTEROL HALF STRENGTH 1.25 MG/3 ML VIAL.NEB NEB SCH ×4 (00:44→18:21)
[2018-08-23] MEDS: IPRATROPIUM NEB FS 0.5 MG/2.5 ML AMPUL.NEB NEB SCH ×4 (00:44→18:21)
[2018-08-23 04:00] VITALS: BP 151/86
[2018-08-23] MEDS: hydrALAZINE HCL 25 MG TABLET PO SCH ×3 (05:28→21:00)
[2018-08-23] MEDS: VANCOMYCIN HCL 125 MG/2.5 ML ORAL.SUSP PO SCH ×3 (05:29→17:26)
[2018-08-23] MEDS: MEROPENEM 500 MG in IV NS 0.9% 50 ML IV SCH ×2 (05:30→17:27)
[2018-08-23 08:00] VITALS: BP 146/59
[2018-08-23] MEDS: ENSURE ENLIVE CHOC 237 ML CAN PO SCH ×3 (08:00→17:00)
[2018-08-23] MEDS: MEGESTROL ACETATE 40 MG TABLET PO SCH ×2 (08:10→17:00)
[2018-08-23] MEDS: ZYTIGA 250 MG PO SCH (08:10)
[2018-08-23] MEDS: PANTOPRAZOLE 40 MG TABLET.DR PO SCH (08:10)
[2018-08-23] MEDS: ACIDOPHILUS/BULGARICUS 1 EACH TAB.CHEW PO SCH ×3 (08:10→17:00)
[2018-08-23] MEDS: predniSONE 1 MG TABLET PO SCH (08:10)
[2018-08-23] MEDS: CALCITRIOL 0.25 MCG CAPSULE PO SCH (08:11)
[2018-08-23] MEDS: AMLODIPINE BESYLATE 2.5 MG TABLET PO SCH (08:12)
[2018-08-23] MEDS: ACETAMINOPHEN 325 MG TABLET PO PRN (08:13)
[2018-08-23 10:13] LABS: BASOPHILS % (AUTO) 0.2 % (0.0-2.0); EOSINOPHILS % (AUTO) 0.3 % (0.0-6.0); HEMATOCRIT 29 % (39-51); HEMOGLOBIN 9.3 g/dL (13.5-17.5); LYMPHOCYTES # (AUTO) 1.2 /CMM (0.8-4.8); LYMPHOCYTES % (AUTO) 5.6 % (20.0-44.0); MEAN CORPUSCULAR HGB CONC 32 g/dl (31.0-36.0); MEAN CORPUSCULAR VOLUME 96 fL (80-96); MONOCYTES # (AUTO) 1.3 /CMM (0.1-1.30); NEUTROPHILS # (AUTO) 19.1 /CMM (1.8-8.9); NEUTROPHILS % (AUTO) 87.9 % (43.0-81.0); PLATELET COUNT (AUTO) 150 /CMM (150-450); RDW COEFFICIENT OF VARIATION 14.8 (11.5-15.0); RED BLOOD CELL COUNT(AUTO) 2.97 MIL/uL (4.5-6.0); WHITE BLOOD COUNT (AUTO) 21.8 K/uL (4.3-11.0)
[2018-08-23 10:26] LABS: ALANINE AMINOTRANSFERASE 16 U/L (12-78); ALBUMIN 2.3 g/dL (3.4-5.0); ALKALINE PHOSPHATASE 235 U/L (46-116); ASPARTATE AMINOTRANSFERASE 187 U/L (15-37); BILIRUBIN,TOTAL 0.4 mg/dL (0.2-1.0); CALCIUM, SERUM 10.3 mg/dL (8.5-10.1); CARBON DIOXIDE 23 mmol/L (21-32); CHLORIDE 101 mmol/L (98-107); CREATININE 2.4 mg/dL (0.6-1.3); GLUCOSE 74 mg/dL (74-106); MAGNESIUM 1.6 mg/dL (1.8-2.4); PHOSPHORUS 4.3 mg/dL (2.5-4.9); SODIUM SERUM 134 mmol/L (136-145); TOTAL PROTEIN, SERUM 6.3 g/dL (6.4-8.2); UREA NITROGEN, BLOOD 24 mg/dL (7-18)
[2018-08-23 16:00] VITALS: BP 137/68
[2018-08-23] MEDS: IV NS 0.9% 1,000 ML IV PRN (18:21)
[2018-08-23] MEDS: CLOTRIMAZOLE 1% 15 GM TUBE TP SCH (18:49)
[2018-08-23 20:00] VITALS: BP 156/83
[2018-08-23] MEDS: FLUCONAZOLE IN NS 100 MG in PREMIX 1 EA IV SCH ×2 (22:03)
[2018-08-24] MEDS: ALBUTEROL HALF STRENGTH 1.25 MG/3 ML VIAL.NEB NEB SCH ×4 (01:12→19:52)
[2018-08-24] MEDS: IPRATROPIUM NEB FS 0.5 MG/2.5 ML AMPUL.NEB NEB SCH ×4 (01:12→19:52)
[2018-08-24 04:00] VITALS: BP 150/63
[2018-08-24] MEDS: hydrALAZINE HCL 25 MG TABLET PO SCH ×3 (05:00→21:00)
[2018-08-24] MEDS: VANCOMYCIN HCL 125 MG/2.5 ML ORAL.SUSP PO SCH ×4 (05:58→17:52)
[2018-08-24] MEDS: MEROPENEM 500 MG in IV NS 0.9% 50 ML IV SCH ×3 (05:58→21:11)
[2018-08-24] MEDS: ACETAMINOPHEN 650 MG/SUPP.RECT RC PRN ×2 (06:22→23:06)
[2018-08-24 06:50] LABS: BASOPHILS # (AUTO) 0.1 /CMM (0.0-0.2); BASOPHILS % (AUTO) 0.2 % (0.0-2.0); EOSINOPHILS % (AUTO) 0.1 % (0.0-6.0); HEMATOCRIT 26 % (39-51); HEMOGLOBIN 8.5 g/dL (13.5-17.5); LYMPHOCYTES % (AUTO) 3.5 % (20.0-44.0); MEAN CORPUSCULAR HGB CONC 33 g/dl (31.0-36.0); MEAN CORPUSCULAR VOLUME 96 fL (80-96); MONOCYTES # (AUTO) 1.1 /CMM (0.1-1.30); MONOCYTES % (AUTO) 3.9 % (2.0-12.0); NEUTROPHILS # (AUTO) 25.3 /CMM (1.8-8.9); NEUTROPHILS % (AUTO) 92.3 % (43.0-81.0); PLATELET COUNT (AUTO) 129 /CMM (150-450); RED BLOOD CELL COUNT(AUTO) 2.72 MIL/uL (4.5-6.0); WHITE BLOOD COUNT (AUTO) 27.4 K/uL (4.3-11.0)
[2018-08-24 07:22] LABS: FREE PSA 11.73 ng/mL (0.00-45); PROSTATE SPECIFIC ANTIGEN SCR 78.72 ng/mL (0.00-4.00)
[2018-08-24 07:29] LABS: ALANINE AMINOTRANSFERASE 12 U/L (12-78); ALBUMIN 1.9 g/dL (3.4-5.0); ALKALINE PHOSPHATASE 241 U/L (46-116); ASPARTATE AMINOTRANSFERASE 183 U/L (15-37); BILIRUBIN,TOTAL 0.5 mg/dL (0.2-1.0); CALCIUM, SERUM 10.4 mg/dL (8.5-10.1); CARBON DIOXIDE 21 mmol/L (21-32); CHLORIDE 105 mmol/L (98-107); CREATININE 2.7 mg/dL (0.6-1.3); GLUCOSE 58 mg/dL (74-106); MAGNESIUM 1.7 mg/dL (1.8-2.4); PHOSPHORUS 5.4 mg/dL (2.5-4.9); POTASSIUM 3.6 mmol/L (3.5-5.1); SODIUM SERUM 140 mmol/L (136-145); TOTAL PROTEIN, SERUM 5.7 g/dL (6.4-8.2); UREA NITROGEN, BLOOD 30 mg/dL (7-18)
[2018-08-24] MEDS: ZYTIGA 250 MG PO SCH (07:30)
[2018-08-24 08:00] VITALS: BP 128/61
[2018-08-24] MEDS: ENSURE ENLIVE CHOC 237 ML CAN PO SCH ×3 (08:00→17:00)
[2018-08-24] MEDS: AMLODIPINE BESYLATE 2.5 MG TABLET PO SCH (09:00)
[2018-08-24] MEDS: PANTOPRAZOLE 40 MG TABLET.DR PO SCH (09:00)
[2018-08-24] MEDS: ACIDOPHILUS/BULGARICUS 1 EACH TAB.CHEW PO SCH ×3 (09:00→17:00)
[2018-08-24] MEDS: CALCITRIOL 0.25 MCG CAPSULE PO SCH (09:00)
[2018-08-24] MEDS: MEGESTROL ACETATE 40 MG TABLET PO SCH ×2 (09:00→17:00)
[2018-08-24] MEDS: predniSONE 1 MG TABLET PO SCH (09:00)
[2018-08-24] MEDS: IV NS 0.9% 1,000 ML IV PRN (10:49)
[2018-08-24 16:00] VITALS: BP 116/56
[2018-08-24] MEDS: CLOTRIMAZOLE 1% 15 GM TUBE TP SCH ×2 (17:53→18:27)
[2018-08-24 20:00] VITALS: BP 149/65
[2018-08-24] MEDS: FLUCONAZOLE IN NS 100 MG in PREMIX 1 EA IV SCH ×2 (21:38)
[2018-08-25] MEDS: IPRATROPIUM NEB FS 0.5 MG/2.5 ML AMPUL.NEB NEB SCH ×4 (01:37→19:58)
[2018-08-25] MEDS: ALBUTEROL HALF STRENGTH 1.25 MG/3 ML VIAL.NEB NEB SCH ×4 (01:37→19:58)
[2018-08-25] MEDS: IV NS 0.9% 1,000 ML IV PRN ×2 (01:41→13:06)
[2018-08-25 04:00] VITALS: BP 139/69
[2018-08-25] MEDS: hydrALAZINE HCL 25 MG TABLET PO SCH ×3 (05:00→21:00)
[2018-08-25] MEDS: VANCOMYCIN HCL 125 MG/2.5 ML ORAL.SUSP PO SCH ×4 (05:11→17:24)
[2018-08-25 06:33] LABS: HEMATOCRIT 24 % (39-51); HEMOGLOBIN 7.7 g/dL (13.5-17.5); MEAN CORPUSCULAR HGB CONC 33 g/dl (31.0-36.0); MEAN CORPUSCULAR VOLUME 97 fL (80-96); PLATELET COUNT (AUTO) 134 /CMM (150-450); RDW COEFFICIENT OF VARIATION 15.2 (11.5-15.0); RED BLOOD CELL COUNT(AUTO) 2.46 MIL/uL (4.5-6.0); WHITE BLOOD COUNT (AUTO) 28.2 K/uL (4.3-11.0)
[2018-08-25 06:59] LABS: ALANINE AMINOTRANSFERASE 8 U/L (12-78); ALBUMIN 1.6 g/dL (3.4-5.0); ALKALINE PHOSPHATASE 199 U/L (46-116); ASPARTATE AMINOTRANSFERASE 108 U/L (15-37); BILIRUBIN,DIRECT 0.2 mg/dL (0.0-0.2); BILIRUBIN,TOTAL 0.5 mg/dL (0.2-1.0); CALCIUM, SERUM 10.3 mg/dL (8.5-10.1); CARBON DIOXIDE 19 mmol/L (21-32); CHLORIDE 111 mmol/L (98-107); GLUCOSE 59 mg/dL (74-106); POTASSIUM 3.3 mmol/L (3.5-5.1); SODIUM SERUM 144 mmol/L (136-145); TOTAL PROTEIN, SERUM 5.2 g/dL (6.4-8.2); UREA NITROGEN, BLOOD 40 mg/dL (7-18)
[2018-08-25] MEDS: ZYTIGA 250 MG PO SCH (07:30)
[2018-08-25 08:00] VITALS: BP 111/52
[2018-08-25] MEDS: ENSURE ENLIVE CHOC 237 ML CAN PO SCH ×3 (08:00→17:44)
[2018-08-25 08:39] LABS: BAND % (MANUAL) 2 % (0.0-5.0); EOSINOPHILS % (MANUAL) 1 % (0-4); LYMPHOCYTES % (MANUAL) 1 % (16-48); MONOCYTES % (MANUAL) 3 % (0-11.0); NEUTROPHILS % (MANUAL) 93 (42-76)
[2018-08-25] MEDS: MEGESTROL ACETATE 40 MG TABLET PO SCH ×2 (09:00→17:24)
[2018-08-25] MEDS: ACIDOPHILUS/BULGARICUS 1 EACH TAB.CHEW PO SCH ×3 (09:00→17:24)
[2018-08-25] MEDS: CALCITRIOL 0.25 MCG CAPSULE PO SCH (09:00)
[2018-08-25] MEDS: AMLODIPINE BESYLATE 2.5 MG TABLET PO SCH (09:00)
[2018-08-25] MEDS: predniSONE 1 MG TABLET PO SCH (09:00)
[2018-08-25] MEDS: PANTOPRAZOLE 40 MG TABLET.DR PO SCH (09:00)
[2018-08-25] MEDS: CLOTRIMAZOLE 1% 15 GM TUBE TP SCH ×2 (09:31→17:25)
[2018-08-25 12:00] VITALS: BP 103/64
[2018-08-25 16:00] VITALS: BP 121/69
[2018-08-25] MEDS: MEROPENEM 500 MG in IV NS 0.9% 50 ML IV SCH (17:24)
[2018-08-25 20:00] VITALS: BP 111/61
[2018-08-25] MEDS: FLUCONAZOLE IN NS 100 MG in PREMIX 1 EA IV SCH ×2 (21:14)
[2018-08-26] MEDS: VANCOMYCIN HCL 125 MG/2.5 ML ORAL.SUSP PO SCH ×4 (00:46→17:00)
[2018-08-26] MEDS: IPRATROPIUM NEB FS 0.5 MG/2.5 ML AMPUL.NEB NEB SCH ×4 (01:49→19:34)
[2018-08-26] MEDS: ALBUTEROL HALF STRENGTH 1.25 MG/3 ML VIAL.NEB NEB SCH ×4 (01:49→19:34)
[2018-08-26] MEDS: ACETAMINOPHEN 325 MG TABLET PO PRN ×2 (03:45→12:56)
[2018-08-26] MEDS: IV NS 0.9% 1,000 ML IV PRN (03:50)
[2018-08-26 04:00] VITALS: BP 134/67
[2018-08-26] MEDS: hydrALAZINE HCL 25 MG TABLET PO SCH ×3 (05:00→21:09)
[2018-08-26] MEDS: MEROPENEM 500 MG in IV NS 0.9% 50 ML IV SCH ×2 (05:19→17:16)
[2018-08-26 06:25] LABS: EOSINOPHILS % (AUTO) 0.8 % (0.0-6.0); HEMATOCRIT 22 % (39-51); HEMOGLOBIN 7.2 g/dL (13.5-17.5); LYMPHOCYTES # (AUTO) 0.7 /CMM (0.8-4.8); LYMPHOCYTES % (AUTO) 3.1 % (20.0-44.0); MEAN CORPUSCULAR HGB CONC 33 g/dl (31.0-36.0); MEAN CORPUSCULAR VOLUME 96 fL (80-96); MONOCYTES # (AUTO) 0.6 /CMM (0.1-1.30); MONOCYTES % (AUTO) 2.6 % (2.0-12.0); NEUTROPHILS # (AUTO) 20.6 /CMM (1.8-8.9); NEUTROPHILS % (AUTO) 93.5 % (43.0-81.0); PLATELET COUNT (AUTO) 129 /CMM (150-450); RDW COEFFICIENT OF VARIATION 15.3 (11.5-15.0); WHITE BLOOD COUNT (AUTO) 22.1 K/uL (4.3-11.0)
[2018-08-26 06:49] LABS: ALANINE AMINOTRANSFERASE 7 U/L (12-78); ALBUMIN 1.5 g/dL (3.4-5.0); ALKALINE PHOSPHATASE 168 U/L (46-116); ASPARTATE AMINOTRANSFERASE 62 U/L (15-37); BILIRUBIN,TOTAL 0.4 mg/dL (0.2-1.0); CALCIUM, SERUM 10.2 mg/dL (8.5-10.1); CARBON DIOXIDE 17 mmol/L (21-32); CHLORIDE 114 mmol/L (98-107); CREATININE 2.9 mg/dL (0.6-1.3); GLUCOSE 85 mg/dL (74-106); MAGNESIUM 1.7 mg/dL (1.8-2.4); PHOSPHORUS 4.6 mg/dL (2.5-4.9); SODIUM SERUM 146 mmol/L (136-145); TOTAL PROTEIN, SERUM 5.1 g/dL (6.4-8.2); UREA NITROGEN, BLOOD 46 mg/dL (7-18)
[2018-08-26 07:03] LABS: POTASSIUM 2.7 mmol/L (3.5-5.1)
[2018-08-26 08:00] VITALS: BP 131/69
[2018-08-26] MEDS: ZYTIGA 250 MG PO SCH (08:23)
[2018-08-26] MEDS: predniSONE 1 MG TABLET PO SCH (08:24)
[2018-08-26] MEDS: MEGESTROL ACETATE 40 MG TABLET PO SCH ×2 (08:24→17:00)
[2018-08-26] MEDS: PANTOPRAZOLE 40 MG TABLET.DR PO SCH (08:24)
[2018-08-26] MEDS: CALCITRIOL 0.25 MCG CAPSULE PO SCH (08:24)
[2018-08-26] MEDS: ACIDOPHILUS/BULGARICUS 1 EACH TAB.CHEW PO SCH ×3 (08:24→17:00)
[2018-08-26] MEDS: AMLODIPINE BESYLATE 2.5 MG TABLET PO SCH (08:25)
[2018-08-26] MEDS: ENSURE ENLIVE CHOC 237 ML CAN PO SCH ×3 (08:31→17:00)
[2018-08-26] MEDS: CLOTRIMAZOLE 1% 15 GM TUBE TP SCH ×2 (08:38→17:00)
[2018-08-26 12:00] VITALS: BP 131/69
[2018-08-26] MEDS ORDERED: Potassium Chloride 20 MEQ in IV NS 0.9% 1,000 ML IV PRN (12:04)
[2018-08-26] MEDS: CITRIC ACID/SODIUM CITRATE (BICITRA)15 ML UDC PO SCH ×3 (12:19→21:09)
[2018-08-26] MEDS ORDERED: POTASSIUM CHLORIDE 20 MEQ POWDER PACKET GT ONE (12:30)
[2018-08-26] MEDS ORDERED: ACETAMINOPHEN 325 MG TABLET PO PRN (13:00)
[2018-08-26 20:00] VITALS: BP 139/77
[2018-08-26] MEDS: FLUCONAZOLE IN NS 100 MG in PREMIX 1 EA IV SCH ×2 (21:09)
[2018-08-27] MEDS: ACETAMINOPHEN 650 MG/SUPP.RECT RC PRN (00:44)
[2018-08-27] MEDS: VANCOMYCIN HCL 125 MG/2.5 ML ORAL.SUSP PO SCH ×5 (00:44→17:31)
[2018-08-27] MEDS: IPRATROPIUM NEB FS 0.5 MG/2.5 ML AMPUL.NEB NEB SCH ×4 (01:30→19:30)
[2018-08-27] MEDS: ALBUTEROL HALF STRENGTH 1.25 MG/3 ML VIAL.NEB NEB SCH ×4 (01:30→19:30)
[2018-08-27 02:02] LABS: ABG BASE EXCESS -4.3 mmol/L; ABG OXYGEN SATURATION 96.1 % (92.0-98.5); ABG PCO2 22.4 mmHg (35.0-45.0); ABG PH 7.518 (7.350-7.450); ABG PO2 95.1 mmHg (75.0-100.0); AaDO2 164.3 mmHg; COHb 0.3 % (0.5-1.5); MetHb 0.8 % (0.0-1.5); SITE, ABG Right Radial; VENT MODE, BG N/C
[2018-08-27 02:19] LABS: BASOPHILS % (AUTO) 0.2 % (0.0-2.0); EOSINOPHILS % (AUTO) 1.1 % (0.0-6.0); HEMATOCRIT 25 % (39-51); LYMPHOCYTES # (AUTO) 0.8 /CMM (0.8-4.8); LYMPHOCYTES % (AUTO) 3.9 % (20.0-44.0); MEAN CORPUSCULAR HGB CONC 32 g/dl (31.0-36.0); MEAN CORPUSCULAR VOLUME 96 fL (80-96); MONOCYTES # (AUTO) 0.7 /CMM (0.1-1.30); MONOCYTES % (AUTO) 3.4 % (2.0-12.0); NEUTROPHILS # (AUTO) 19.6 /CMM (1.8-8.9); NEUTROPHILS % (AUTO) 91.4 % (43.0-81.0); PLATELET COUNT (AUTO) 97 /CMM (150-450); RDW COEFFICIENT OF VARIATION 15.7 (11.5-15.0); WHITE BLOOD COUNT (AUTO) 21.5 K/uL (4.3-11.0)
[2018-08-27 03:09] LABS: CARBON DIOXIDE 18 mmol/L (21-32); CHLORIDE 120 mmol/L (98-107); CREATININE 2.9 mg/dL (0.6-1.3); GLUCOSE 101 mg/dL (74-106); SODIUM SERUM 152 mmol/L (136-145); UREA NITROGEN, BLOOD 47 mg/dL (7-18)
[2018-08-27 03:17] LABS: ALANINE AMINOTRANSFERASE 11 U/L (12-78); ALBUMIN 1.6 g/dL (3.4-5.0); ALKALINE PHOSPHATASE 175 U/L (46-116); ASPARTATE AMINOTRANSFERASE 95 U/L (15-37); BILIRUBIN,TOTAL 0.5 mg/dL (0.2-1.0); TOTAL PROTEIN, SERUM 5.5 g/dL (6.4-8.2)
[2018-08-27 04:00] VITALS: BP_SYST 124; BP_SYST 139; BP_SYST 144; BP_DIAS 76; BP_DIAS 77
[2018-08-27 04:42] LABS: LYMPHOCYTES % (MANUAL) 5 % (16-48); MONOCYTES % (MANUAL) 4 % (0-11.0); NEUTROPHILS % (MANUAL) 91 (42-76)
[2018-08-27 04:55] LABS: BASOPHILS % (AUTO) 0.1 % (0.0-2.0); HEMATOCRIT 23 % (39-51); HEMOGLOBIN 7.4 g/dL (13.5-17.5); LYMPHOCYTES # (AUTO) 0.8 /CMM (0.8-4.8); LYMPHOCYTES % (AUTO) 4.2 % (20.0-44.0); MEAN CORPUSCULAR HGB CONC 32 g/dl (31.0-36.0); MEAN CORPUSCULAR VOLUME 96 fL (80-96); MONOCYTES # (AUTO) 0.6 /CMM (0.1-1.30); MONOCYTES % (AUTO) 2.9 % (2.0-12.0); NEUTROPHILS # (AUTO) 18.5 /CMM (1.8-8.9); NEUTROPHILS % (AUTO) 91.8 % (43.0-81.0); PLATELET COUNT (AUTO) 106 /CMM (150-450); RDW COEFFICIENT OF VARIATION 15.4 (11.5-15.0); RED BLOOD CELL COUNT(AUTO) 2.38 MIL/uL (4.5-6.0); WHITE BLOOD COUNT (AUTO) 20.1 K/uL (4.3-11.0)
[2018-08-27] MEDS: hydrALAZINE HCL 25 MG TABLET PO SCH ×2 (05:00→05:44)
[2018-08-27 05:10] LABS: CALCIUM, SERUM 10.5 mg/dL (8.5-10.1); CARBON DIOXIDE 18 mmol/L (21-32); CHLORIDE 120 mmol/L (98-107); CREATININE 2.8 mg/dL (0.6-1.3); GLUCOSE 98 mg/dL (74-106); MAGNESIUM 1.8 mg/dL (1.8-2.4); PHOSPHORUS 3.3 mg/dL (2.5-4.9); SODIUM SERUM 154 mmol/L (136-145); UREA NITROGEN, BLOOD 46 mg/dL (7-18)
[2018-08-27] MEDS: MEROPENEM 500 MG in IV NS 0.9% 50 ML IV SCH ×2 (05:44→17:33)
[2018-08-27 05:52] LABS: TROPONIN I 8.738 ng/mL (0.00-0.056)
[2018-08-27] MEDS: ZYTIGA 250 MG PO SCH (07:30)
[2018-08-27 08:00] VITALS: BP 125/70
[2018-08-27] MEDS: ENSURE ENLIVE CHOC 237 ML CAN PO SCH ×3 (08:00→17:00)
[2018-08-27] MEDS: ACIDOPHILUS/BULGARICUS 1 EACH TAB.CHEW PO SCH ×3 (09:00→17:00)
[2018-08-27] MEDS: predniSONE 1 MG TABLET PO SCH (09:00)
[2018-08-27] MEDS: CITRIC ACID/SODIUM CITRATE (BICITRA)15 ML UDC PO SCH ×3 (09:00→17:00)
[2018-08-27] MEDS: CLOTRIMAZOLE 1% 15 GM TUBE TP SCH ×2 (09:16→17:31)
[2018-08-27] MEDS ORDERED: NITROGLYCERIN 30 GM TUBE TP SCH (09:30)
[2018-08-27 12:00] VITALS: BP 142/80
[2018-08-27] MEDS ORDERED: MORPHINE SULFATE INJ 4 MG/ML DISP.SYRIN IV ONE (12:00)
[2018-08-27] MEDS: DIGOXIN INJ 0.5 MG/2 ML AMPUL IV SCH ×3 (12:15→23:54)
[2018-08-27] MEDS ORDERED: MORPHINE SULFATE INJ 2 MG/ML DISP.SYRIN IV ONE (13:00)
[2018-08-27 13:01] LABS: INR 1.15 (0.87-1.13); PARTIAL THROMBOPLASTIN TIME 38 SEC (23-34)
[2018-08-27 13:10] LABS: D-DIMER > 35.20 mg/L(FEU (0.17-0.50)
[2018-08-27] MEDS: Potassium Chloride 30 MEQ in IV D5W 1,000 ML IV PRN ×2 (13:58→23:56)
[2018-08-27] MEDS ORDERED: MORPHINE SULFATE INJ 2 MG/ML DISP.SYRIN IVP ONE (14:00)
[2018-08-27 16:00] VITALS: BP 134/68
[2018-08-27 20:00] VITALS: BP 131/72
[2018-08-27] MEDS: MORPHINE SULFATE INJ 2 MG/ML DISP.SYRIN IV PRN (20:16)
[2018-08-27] MEDS: LORAZEPAM INJ 2 MG/ML VIAL IV PRN (23:14)
[2018-08-28] MEDS: ALBUTEROL HALF STRENGTH 1.25 MG/3 ML VIAL.NEB NEB SCH ×4 (00:56→19:30)
[2018-08-28] MEDS: IPRATROPIUM NEB FS 0.5 MG/2.5 ML AMPUL.NEB NEB SCH ×4 (00:56→19:30)
[2018-08-28] MEDS: MORPHINE SULFATE INJ 2 MG/ML DISP.SYRIN IV PRN ×5 (02:25→16:36)
[2018-08-28 04:00] VITALS: BP 120/60
[2018-08-28 08:00] VITALS: BP 130/69
[2018-08-28 08:39] VITALS: BP 130/69
[2018-08-28] MEDS: ACIDOPHILUS/BULGARICUS 1 EACH TAB.CHEW PO SCH ×3 (09:00→16:39)
[2018-08-28 12:00] VITALS: BP_SYST 109; BP_SYST 89; BP_DIAS 56; BP_DIAS 58
[2018-08-28] MEDS: LORAZEPAM INJ 2 MG/ML VIAL IV PRN ×2 (13:17→17:49)
== END 2018-08-28 19:50 | disposition hospice, inpatient (51) | DRG 871 ==
LOC: ER 19:50 → TELE-TD 21:42 → TELE1 08-17 10:38 → MEDSG1 08-20 08:36 → TELE1 08-27 07:54
PROVIDERS: ADMIT Internal Medicine; ATTEND Internal Medicine
DX: A41.9 Sepsis, unspecified organism (principal); E43 Unspecified severe protein-calorie malnutrition; G92 Toxic encephalopathy; N17.0 Acute kidney failure with tubular necrosis; I21.A1 Myocardial infarction type 2; J96.01 Acute respiratory failure with hypoxia; J69.0 Pneumonitis due to inhalation of food and vomit; I13.0 Hypertensive heart and chronic kidney disease with heart failure and stage 1 through stage 4 chronic kidney disease, or unspecified chronic kidney disease; E87.2 Acidosis; C79.51 Secondary malignant neoplasm of bone; D62 Acute posthemorrhagic anemia; D68.59 Other primary thrombophilia; J44.0 Chronic obstructive pulmonary disease with (acute) lower respiratory infection; N39.0 Urinary tract infection, site not specified; C79.11 Secondary malignant neoplasm of bladder; N13.6 Pyonephrosis; Z68.1 Body mass index [BMI] 19.9 or less, adult; A04.72 Enterocolitis due to Clostridium difficile, not specified as recurrent; I69.354 Hemiplegia and hemiparesis following cerebral infarction affecting left non-dominant side; J90 Pleural effusion, not elsewhere classified; E87.0 Hyperosmolality and hypernatremia; R64 Cachexia; Z51.5 Encounter for palliative care; E86.0 Dehydration; I25.10 Atherosclerotic heart disease of native coronary artery without angina pectoris; I48.0 Paroxysmal atrial fibrillation; N18.9 Chronic kidney disease, unspecified; I50.9 Heart failure, unspecified; E87.6 Hypokalemia; E78.5 Hyperlipidemia, unspecified; F03.90 Unspecified dementia, unspecified severity, without behavioral disturbance, psychotic disturbance, mood disturbance, and anxiety; R65.20 Severe sepsis without septic shock; Z66 Do not resuscitate; Z87.440 Personal history of urinary (tract) infections; Z93.6 Other artificial openings of urinary tract status; C61 Malignant neoplasm of prostate; F14.11 Cocaine abuse, in remission; B96.1 Klebsiella pneumoniae [K. pneumoniae] as the cause of diseases classified elsewhere; Z16.12 Extended spectrum beta lactamase (ESBL) resistance; B96.5 Pseudomonas (aeruginosa) (mallei) (pseudomallei) as the cause of diseases classified elsewhere; Z16.24 Resistance to multiple antibiotics
CPT/HCPCS: 31720; 36415; 36600; 70450-TC; 71045-TC; 74018; 76770-TC; 80048-TC; 80053-TC; 80061-TC; 80076-TC; 81000-TC; 82247-TC; 82248-TC; 82272-TC; 82728-TC; 82803-TC; 83540-TC; 83605-TC; 83735-TC; 83880; 84100-TC; 84153-TC; 84154-TC; 84443-TC; 84484-TC; 85025-TC; 85378-TC; 85610-TC; 85730-TC; 86850-TC; 87040-TC; 87086-TC; 87186-TC; 87400; 92521; 92526; 92611-TC; 93307-TC; 94760-TC; 94799-TC; A4216; A4606; A6402; G0378; J0696; J0770; J1160; J1450; J2020; J2060; J2185; J2270; J3475; J3480; J3490; J7030; J7040; J7042; J7050; J7060; J7070; J7512; Z7610

== ENCOUNTER 2018-08-28 20:31 | Inpatient (IN) | payer OTHER ==
[~2018-08-28] VITALS: Ht 175.3 cm; Wt 52.2 kg
[2018-08-28 20:00] VITALS: BP 110/53
[~2018-08-28 20:31] MED LIST changes: +ACID1TAB12 PO; +CLOT15CR35 TP; +Polyvinyl Alcohol EACHEYE; +VANC125C11 PO
[2018-08-28] MEDS ORDERED: BISACODYL SUPP (10 MG) 10 MG/SUPP.RECT SUPP.RECT RC PRN (21:00)
[2018-08-28] MEDS ORDERED: LORAZEPAM INJ 2 MG/ML VIAL IV PRN (21:00)
[2018-08-28] MEDS ORDERED: MORPHINE SULFATE INJ 2 MG/ML DISP.SYRIN IV PRN (21:00)
[2018-08-28] MEDS ORDERED: Z GUARD REMEDY 2 OZ OINT TP PRN (21:00)
[2018-08-28] MEDS ORDERED: ACETAMINOPHEN 650 MG/SUPP.RECT RC PRN (21:00)
[2018-08-29 04:00] VITALS: BP 102/50
[2018-08-29 08:00] VITALS: BP 57/33
[2018-08-29 10:00] VITALS: BP 57/33
[2018-08-30] MEDS ORDERED: PROPOFOL 100 ML ONE (10:24)
== END 2018-08-29 08:30 | disposition expired | DRG 720 ==
LOC: HOSPICE1 20:31
PROVIDERS: ADMIT Family Medicine; ATTEND Family Medicine
DX: A41.9 Sepsis, unspecified organism (principal); I21.4 Non-ST elevation (NSTEMI) myocardial infarction; J69.0 Pneumonitis due to inhalation of food and vomit; G93.41 Metabolic encephalopathy; N17.9 Acute kidney failure, unspecified; A04.72 Enterocolitis due to Clostridium difficile, not specified as recurrent; E87.2 Acidosis; R13.10 Dysphagia, unspecified; C61 Malignant neoplasm of prostate; Z93.6 Other artificial openings of urinary tract status; D62 Acute posthemorrhagic anemia; J44.9 Chronic obstructive pulmonary disease, unspecified; Z51.5 Encounter for palliative care; I25.10 Atherosclerotic heart disease of native coronary artery without angina pectoris; I12.9 Hypertensive chronic kidney disease with stage 1 through stage 4 chronic kidney disease, or unspecified chronic kidney disease; N18.9 Chronic kidney disease, unspecified; Z79.82 Long term (current) use of aspirin; Z79.899 Other long term (current) drug therapy; Z66 Do not resuscitate; N13.30 Unspecified hydronephrosis; E78.5 Hyperlipidemia, unspecified; Z16.342 Resistance to multiple antimycobacterial drugs; F14.10 Cocaine abuse, uncomplicated; F03.90 Unspecified dementia, unspecified severity, without behavioral disturbance, psychotic disturbance, mood disturbance, and anxiety; R00.1 Bradycardia, unspecified; Z74.09 Other reduced mobility; E87.8 Other disorders of electrolyte and fluid balance, not elsewhere classified; Z87.891 Personal history of nicotine dependence; F12.21 Cannabis dependence, in remission; I25.2 Old myocardial infarction
CPT/HCPCS: G0378; J2060; J2270; J3490; Z7610